=== PATIENT | female | born 1945 | race Caucasian/White ===

== ENCOUNTER 2021-04-20 16:53 | Inpatient (IN) | payer OTHER ==
--- OUTSIDE RECORDS SUMMARY | 2021-04-20 16:56 | XMS REPORT | Continuity of Care Document ---
:1945 Author Organization [facility] t Address [address] [place] [address] Care Team Providers Name Role Phone Daquan STAPLES, Yo Primary Care Physician Doctor Unassigned, Name Attending Clinician Unavailable Problems This patient has no known problems. Allergies, Adverse Reactions, Alerts This patient has no known allergies or adverse reactions. Social History Social Habit Start Date Stop Date Quantity Comments Source Sex Assigned [birth year] [facility] 00:00:00 00:00:00 Medications This patient has no known medications. Procedures This patient has no known procedures. Plan of Care Planned Activity Planned Date Details Comments Source Future Scheduled 2021-06-23 INFLUENZA VACCINE [place] [facility] 00:00:00 [code = INFLUENZA VACCINE] Future Scheduled 2019-04-28 BREAST CANCER [facility] 00:00:00 SCREENING [code = BREAST CANCER SCREENING] Future Scheduled 1997 COLONOSCOPY SCREENING [facility] 00:00:00 [code = COLONOSCOPY SCREENING] Future Scheduled 1997 SHINGLES VACCINES [place] [facility] 00:00:00 (#1) [code = SHINGLES VACCINES (#1)] Future Scheduled 1959 COVID-19 VACCINE (1) [facility] 00:00:00 [code = COVID-19 VACCINE (1)] Encounters Start End Encounter Admission Attending Care Care Encounter Source Date/Time Date/Time Type Type Clinicians Facility Department ID 2020-02-22 2020-02-22 [facility] [id number] 00:00:00 00:00:00 Only Unassigned, MARYANNE [id number] [place] [facility] [id number] 2020-02-14 2020-02-14 Orders Doctor MARIANELA [id number] 00:00:00 00:00:00 Only Unassigned, [id number] [id number] Results This patient has no known results.
[2021-04-20 17:28] LABS: Absolute Lymphocytes (CBC) 2.1 K/uL (0.7-4.9); Basophils % 0.6 % (0-1.3); Hematocrit 38.6 % (36.0-45.0); Lymphocytes % 16.8 % (15.3-44.8); MPV 9.5 fL (7.6-11.3)
[2021-04-20 17:48] LABS: Urine Blood 1+ (Negative); Urine Glucose Negative (Negative); Urine Protein Negative (Negative)
[2021-04-20 17:50] LABS: Albumin 2.7 g/dL (3.4-5.0); Bilirubin Direct 0.2 mg/dL (0-0.2); Bilirubin Total 0.8 mg/dL (0.2-1.0); Magnesium 2.1 mg/dL (1.8-2.4); Potassium 4.7 mmol/L (3.5-5.1); Protein, Total 7.7 g/dL (6.4-8.2); Protime INR 1.14; Troponin (Emerg Dept Use Only) 0.21 ng/mL (0.0-0.045)
[2021-04-20] MEDS ORDERED: METOPROLOL TAR 50 MG TAB ONE (17:57)
[2021-04-20] MEDS ORDERED: METOPROLOL TARTRATE 5 MG/5 ML INJ IV ONE (17:57)
[2021-04-20] MEDS ORDERED: NA CHLORIDE 0.9% 1,000 ML ONE (17:57)
[2021-04-20] MEDS ORDERED: ENOXAPARIN 80 MG/0.8 ML SQ ONE (17:57)
[2021-04-20] MEDS ORDERED: FAMOTIDINE 20 MG/2 ML VIAL IV ONE (17:57)
[2021-04-20 18:52] LABS: Thyroid Stimulating Hormone 0.864 uIU/mL (0.360-3.740)
--- NOTE | 2021-04-20 19:22 | ER ---
Nurse's Notes [facility] Name: Yuval Byrne Age: 75 yrs Sex: Female : 1945 Arrival Date: 04/20/2021 Time: 17:00 Bed 17 Private MD: Diagnosis: Chest pain, unspecified;Angina pectoris;Dementia in other diseases classified elsewhere;Chronic obstructive pulmonary disease, unspecified;Non-ST elevation (NSTEMI) myocardial infarction;Atrial fibrillation and flutter-with RVR;Tobacco abuse counseling;Tobacco use Presentation: 04/20 16:52 Chief complaint: EMS states: 75 yr. old female c/o chest pain and weakness that started rb3 today. Altered mental status. New onset of A-Fib. EMS administered aspirin 324 mg PO x 1, NS 250 ml via 20 g L AC. BS 108, BP 140's, 100% RA. Coronavirus screen: At this time, the client does not indicate any symptoms associated with coronavirus-19. Ebola Screen: Patient denies travel to an Ebola-affected area in the 21 days before illness onset. 16:52 Method Of Arrival: EMS: [facility] rb3 16:52 Initial Sepsis Screen: Does the patient meet any 2 criteria?. rb3 16:52 Initial Sepsis Screen: Does the patient have a suspected source of infection? No. rb3 Patient's initial sepsis screen is negative. Risk Assessment: Do you want to hurt yourself or someone else? Patient reports no desire to harm self or others. Onset of symptoms was April 20, 2021. 16:52 Acuity: AMERICO 3 rb3 Triage Assessment: 16:52 General: Appears in no apparent distress. comfortable, Behavior is calm, cooperative. rb3 Pain: Complains of pain in epigastric area and left upper quadrant Pain currently is 10 out of 10 on a pain scale. Pain began today. Neuro: Level of Consciousness is awake, obeys commands, confused, Oriented to person. Neuro: Reports weakness in generalized. Cardiovascular: Patient's skin is warm and dry. Respiratory: Airway is patent Respiratory effort is even, unlabored, Respiratory pattern is regular, symmetrical. GI: No signs and/or symptoms were reported involving the gastrointestinal system. : No signs and/or symptoms were reported regarding the genitourinary system. Historical: - Allergies: 16:52 hydrocodone; rb3 - Home Meds: 16:52 Namenda XR 28 mg oral CSpX 1 cap once daily [Active]; Tylenol 325 mg 2 tabs every 6 rb3 hours [Active]; Depakote 125 mg Oral TbEC 3 tabs 2 times per day [Active]; donepezil 10 mg oral tab 2 tab once daily [Active]; gabapentin 400 mg oral cap 1 cap 3 times per day [Active]; loratadine 10 mg oral tab 1 tab once daily [Active]; - PMHx: 16:52 Alzheimers; cognitive deficit; generalized weakness; Dementia w/behavioral disturbance; rb3 Idiopathic Peripheral Autonomic Neuropathy; Polymyalgia Rheumatica; Systemic Involvement of Connective Tissue; - Immunization history:: Adult Immunizations unknown. - Social history:: Smoking status: Patient reports the use of cigarette tobacco products, unknown amount. - Family history:: not pertinent. Screenin:52 Abuse screen: Denies threats or abuse. Nutritional screening: No deficits noted. rb3 Tuberculosis screening: No symptoms or risk factors identified. Fall Risk No fall in past 12 months (0 pts). Secondary diagnosis (15 points) Alzheimer's, dementia, IV access (20 points). Ambulatory Aid- None/Bed Rest/Nurse Assist (0 pts). Gait- Normal/Bed Rest/Wheelchair (0 pts) Mental Status- Overestimates/Forgets Limitations (15 pts.). Total Wade Fall Scale indicates High Risk Score (45 or more points). Fall prevention measures have been instituted. Side Rails Up X 2 Placed Close to Nursing Station 1:1 Attendant Assigned Frequent Obs/Assessments Occuring As available patient and family educated on Fall Prevention Program and Strategies. Assessment: 16:52 General: See triage assessment. rb3 17:50 Reassessment: Patient appears in no apparent distress at this time. No changes from rb3 previously documented assessment. 18:19 Reassessment: Held Lopressor due to low blood pressure. rb3 18:40 Reassessment: Patient appears in no apparent distress at this time. Patient and/or rb3 family updated on plan of care and expected duration. Pain level reassessed. Patient is alert, oriented x 3, equal unlabored respirations, skin warm/dry/pink. 20:00 General: Appears in no apparent distress. comfortable, Behavior is calm, cooperative. rr5 Pain: Unable to use pain scale. Patient appears confused. Neuro: Level of Consciousness is awake, alert, Oriented to none. Cardiovascular: Capillary refill < 3 seconds Patient's skin is warm and dry. Rhythm is irregular. Respiratory: Airway is patent Respiratory effort is even, unlabored, Respiratory pattern is regular, symmetrical. GI: Abdomen is round non-distended. : No signs and/or symptoms were reported regarding the genitourinary system. EENT: No signs and/or symptoms were reported regarding the EENT system. Derm: Skin temperature is warm. Musculoskeletal: Capillary refill < 3 seconds. 21:20 Reassessment: Patient appears in no apparent distress at this time. Patient is alert, rr5 oriented x 3, equal unlabored respirations, skin warm/dry/pink. able to move to bedside commode with assistance, voided freely. Vital Signs: 16:52 BP 130 / 64; Pulse 96; Resp 17; Temp 99.0; Pulse Ox 98% on R/A; Weight 83.1 kg; Height rb3 5 ft. 7 in. (170.18 cm); Pain 10/10; 17:45 BP 111 / 61; Pulse 104; Resp 20; Pulse Ox 96% on R/A; rb3 18:19 BP 98 / 57; Pulse 74; Resp 17; Pulse Ox 96% on R/A; rb3 18:40 BP 98 / 85; Pulse 72; Resp 18; Pulse Ox 97% ; rb3 20:00 BP 105 / 62; Pulse 85; Resp 18; Pulse Ox 95% ; rr5 21:02 BP 117 / 58; Pulse 95; Resp 19; Pulse Ox 94% ; rr5 16:52 Body Mass Index 28.69 (83.10 kg, 170.18 cm) rb3 16:52 Called [facility] for height and weight. rb3 18:19 Held the Lopressor due to BP rb3 ED Course: 16:52 Arm band placed on right wrist. rb3 17:00 Patient arrived in ED. rb3 17:01 Maintain EMS IV. Dressing intact. Good blood return noted. Site clean \T\ dry. mh5 17:01 Patient has correct armband on for positive identification. Bed in low position. Call [facility] light in reach. Side rails up X2. Warm blanket given. monitor technician on. Pulse ox on. NIBP on. 17:04 Jose Lemus MD is Attending Physician. ubaldo 17:09 Triage completed. rb3 17:21 Troponin (emerg Dept Use Only) Sent. mh5 17:21 PT-INR Sent. mh5 17:21 NT PRO-BNP Sent. mh5 17:22 Magnesium Sent. mh5 17:22 LFT's Sent. mh5 17:22 CBC with Diff Sent. mh5 17:22 Basic Metabolic Panel Sent. mh5 17:32 Eli Ramirez, RN is Primary Nurse. rb3 17:34 XRAY Chest (1 view) In Process Unspecified. EDMS 17:59 Urine Culture Sent. mh5 17:59 Urine collected: straight cath specimen, clear. mh5 18:19 Basic Metabolic Panel Sent. mh5 18:19 CBC with Diff Sent. mh5 18:19 LFT's Sent. mh5 19:17 Siddharth Butler MD is Hospitalizing Provider. ubaldo 21:08 No provider procedures requiring assistance completed. Patient admitted, IV remains in rr5 place. intact, No redness/swelling at site. Administered Medications: 17:45 Drug: NS 0.9% 1000 ml Route: IV; Rate: 1 bolus; Site: left antecubital; rb3 19:20 Follow up: Response: No adverse reaction; IV Status: Completed infusion; IV Intake: rr5 1000ml 17:45 Drug: Lopressor (metoprolol TARTRATE) 50 mg Route: PO; rb3 18:22 Follow up: Response: No adverse reaction; Blood pressure is lowered rb3 17:45 Drug: Lopressor (metoprolol) 2.5 mg Route: IVP; Site: left antecubital; rb3 18:19 Follow up: Response: No adverse reaction; Blood pressure is lowered rb3 17:45 Drug: Pepcid (famotidine) 20 mg Route: IVP; Site: left antecubital; rb3 18:00 Follow up: Response: No adverse reaction rb3 17:45 Drug: Lovenox (enoxaparin) 1 mg/kg Route: Sub-Q; Site: abdomen; rb3 18:00 Follow up: Response: No adverse reaction rb3 19:25 Drug: Xopenex (levalbuterol) 2.5 mg Route: Inhalation; rr5 20:25 Follow up: Response: No adverse reaction rr5 19:25 Drug: AtroVENT (ipratropium) Aerosol 0.5 mg Route: Inhalation; rr5 20:25 Follow up: Response: No adverse reaction rr5 20:00 Drug: SOLU-Medrol (methylPrednisoLONE) 125 mg Route: IVP; Site: left antecubital; rr5 21:00 Follow up: Response: No adverse reaction rr5 20:00 Drug: Aspirin 81 mg Route: PO; rr5 21:00 Follow up: Response: No adverse reaction rr5 20:00 Drug: PlaVIX (clopidogrel) 150 mg Route: PO; rr5 21:00 Follow up: Response: No adverse reaction rr5 20:59 Drug: Nicoderm CQ 21 mg/24 hr 21 mg {Note: right upper arm\E\.} Route: Transdermal; Site: rr5 affected area; 21:34 Follow up: Response: No adverse reaction rr5 21:36 Not Given (Hemodynamic Parameters): Lopressor (metoprolol) 2.5 mg IVP once; Hold for rr5 SBP <100 or HR <60. 22:01 Not Given (Other Intervention Used): Lopressor (metoprolol) 2.5 mg IVP once; Hold for rr5 SBP <100 or HR <60. Intake: 19:20 IV: 1000ml; Total: 1000ml. rr5 Outcome: 19:22 Decision to Hospitalize by Provider. ubaldo 21:33 Admitted to Med/surg accompanied by jesus manuel, via wheelchair, room 205, with chart, Report rr5 called to kallie 21:33 Condition: stable 21:33 Instructed on the need for admit. 22:02 Patient left the ED. rr5 Signatures: Dispatcher [employer] EDTX Jose Lemus MD MD cha Martinez, Maria 5 Siddharth Ivory, RN RN rr5 Eli Ramirez, CONSTANTINE RN rb3 Corrections: (The following items were deleted from the chart) 17:34 16:52 BP 130 / 64; Pulse 96bpm; Resp 17bpm; Pulse Ox 98% RA; Temp 99.0F; Pain 10/10; rb3rb3 18:21 18:19 BP 98 / 57; Pulse 74bpm; Resp 17bpm; Pulse Ox 96% RA; rb3 rb3 21:08 21:02 BP 117 / 58; Pulse 95bpm; Resp 19bpm; Pulse Ox 98%; rr5 rr5
--- NOTE | 2021-04-20 19:22 | EDPHYS ---
Physician Documentation [facility] Name: Yuval Byrne Age: 75 yrs Sex: Female : 1945 Arrival Date: 04/20/2021 Time: 17:00 Bed 17 Private MD: ED Physician Jose Lemus HPI: 04/20 19:11 This 75 yrs old Unknown Female presents to ER via EMS with complaints of Chest Pain. ubaldo 19:11 The patient or guardian reports chest pain that is located primarily in the substernal ubaldo area, anterior chest wall, bilaterally. Onset: 1 day(s) ago. The pain does not radiate. Associated signs and symptoms: Pertinent positives: lightheadedness, nausea, shortness of breath. The chest pain is described as a pressure. Duration: The patient or guardian reports multiple episodes, that are intermittent. Modifying factors: The symptoms are alleviated by nothing. the symptoms are aggravated by nothing. Severity of pain: At its worst the pain was mild in the emergency department the pain is unchanged. It is unknown whether or not the patient has had similar symptoms in the past. Historical: - Allergies: 16:52 hydrocodone; rb3 - Home Meds: 16:52 Namenda XR 28 mg oral CSpX 1 cap once daily [Active]; Tylenol 325 mg 2 tabs every 6 rb3 hours [Active]; Depakote 125 mg Oral TbEC 3 tabs 2 times per day [Active]; donepezil 10 mg oral tab 2 tab once daily [Active]; gabapentin 400 mg oral cap 1 cap 3 times per day [Active]; loratadine 10 mg oral tab 1 tab once daily [Active]; - PMHx: 16:52 Alzheimers; cognitive deficit; generalized weakness; Dementia w/behavioral disturbance; rb3 Idiopathic Peripheral Autonomic Neuropathy; Polymyalgia Rheumatica; Systemic Involvement of Connective Tissue; - Immunization history:: Adult Immunizations unknown. - Social history:: Smoking status: Patient reports the use of cigarette tobacco products, unknown amount. - Family history:: not pertinent. ROS: 19:11 Constitutional: Negative for fever, chills, and weight loss, Eyes: Negative for injury, ubaldo pain, redness, and discharge, ENT: Negative for injury, pain, and discharge, Neck: Negative for injury, pain, and swelling, Abdomen/GI: Negative for abdominal pain, nausea, vomiting, diarrhea, and constipation, Back: Negative for injury and pain, : Negative for injury, bleeding, discharge, and swelling, MS/Extremity: Negative for injury and deformity, Skin: Negative for injury, rash, and discoloration, Neuro: Negative for headache, weakness, numbness, tingling, and seizure, Psych: Negative for depression, anxiety, suicide ideation, homicidal ideation, and hallucinations, Allergy/Immunology: Negative for hives, rash, and allergies, Endocrine: Negative for neck swelling, polydipsia, polyuria, polyphagia, and marked weight changes, Hematologic/Lymphatic: Negative for swollen nodes, abnormal bleeding, and unusual bruising. 19:11 Cardiovascular: Positive for chest pain, palpitations. 19:11 Respiratory: Positive for cough, shortness of breath, wheezing, expiratory. Exam: 19:11 Constitutional: This is a well developed, well nourished patient who is awake, alert, ubaldo and in no acute distress. Head/Face: Normocephalic, atraumatic. Eyes: Pupils equal round and reactive to light, extra-ocular motions intact. Lids and lashes normal. Conjunctiva and sclera are non-icteric and not injected. Cornea within normal limits. Periorbital areas with no swelling, redness, or edema. ENT: Nares patent. No nasal discharge, no septal abnormalities noted. Tympanic membranes are normal and external auditory canals are clear. Oropharynx with no redness, swelling, or masses, exudates, or evidence of obstruction, uvula midline. Mucous membranes moist. Neck: Trachea midline, no thyromegaly or masses palpated, and no cervical lymphadenopathy. Supple, full range of motion without nuchal rigidity, or vertebral point tenderness. No Meningismus. Chest/axilla: Normal chest wall appearance and motion. Nontender with no deformity. No lesions are appreciated. Abdomen/GI: Soft, non-tender, with normal bowel sounds. No distension or tympany. No guarding or rebound. No evidence of tenderness throughout. Back: No spinal tenderness. No costovertebral tenderness. Full range of motion. Female : Normal external genitalia. Skin: Warm, dry with normal turgor. Normal color with no rashes, no lesions, and no evidence of cellulitis. MS/ Extremity: Pulses equal, no cyanosis. Neurovascular intact. Full, normal range of motion. Neuro: Awake and alert, GCS 15, oriented to person, place, time, and situation. Cranial nerves II-XII grossly intact. Motor strength 5/5 in all extremities. Sensory grossly intact. Cerebellar exam normal. Normal gait. Psych: Awake, alert, with orientation to person, place and time. Behavior, mood, and affect are within normal limits. 19:11 Cardiovascular: Rate: tachycardic, actual rate is 130 bpm, Rhythm: irregularly irregular, Heart sounds: normal, Edema: is not appreciated, JVD: is not appreciated. 19:11 ECG was reviewed by the Attending Physician. Vital Signs: 16:52 BP 130 / 64; Pulse 96; Resp 17; Temp 99.0; Pulse Ox 98% on R/A; Weight 83.1 kg; Height rb3 5 ft. 7 in. (170.18 cm); Pain 10/10; 17:45 BP 111 / 61; Pulse 104; Resp 20; Pulse Ox 96% on R/A; rb3 18:19 BP 98 / 57; Pulse 74; Resp 17; Pulse Ox 96% on R/A; rb3 18:40 BP 98 / 85; Pulse 72; Resp 18; Pulse Ox 97% ; rb3 20:00 BP 105 / 62; Pulse 85; Resp 18; Pulse Ox 95% ; rr5 21:02 BP 117 / 58; Pulse 95; Resp 19; Pulse Ox 94% ; rr5 16:52 Body Mass Index 28.69 (83.10 kg, 170.18 cm) rb3 16:52 Called [place] for height and weight. rb3 18:19 Held the Lopressor due to BP rb3 MDM: 17:04 Patient medically screened. [facility] 04/20 17:07 Order name: Basic Metabolic Panel [facility] 04/20 17:07 Order name: CBC with Diff; Complete Time: 18:08 [facility] 04/20 17:07 Order name: LFT's [facility] 04/20 17:07 Order name: Magnesium [facility] 04/20 17:07 Order name: NT PRO-BNP [facility] 04/20 17:07 Order name: PT-INR; Complete Time: 18:08 [facility] 04/20 17:07 Order name: Troponin (emerg Dept Use Only) [facility] 04/20 17:11 Order name: Basic Metabolic Panel [facility] 04/20 17:11 Order name: CBC with Diff [facility] 04/20 17:11 Order name: LFT's [facility] 04/20 17:07 Order name: XRAY Chest (1 view) [facility] 04/20 17:11 Order name: Urine Culture [facility] 04/20 17:48 Order name: Urine Dipstick-Ancillary [facility] 04/20 18:34 Order name: Thyroid Stimulating Hormone [facility] 04/20 18:35 Order name: Lipase [facility] 04/20 19:08 Order name: Depakote [facility] 04/20 19:08 Order name: Valproic Acid (Depakene) Level [facility] 04/20 19:23 Order name: SARS-COV-2 RT PCR [facility] 04/20 20:37 Order name: Valproic Acid (Depakene) [facility] 04/20 17:07 Order name: EKG; Complete Time: 17:07 [facility] 04/20 17:07 Order name: Cardiac monitoring; Complete Time: 17:19 [facility] 04/20 17:07 Order name: EKG - Nurse/Tech; Complete Time: 17:19 [facility] 04/20 17:07 Order name: IV Saline Lock; Complete Time: 17:08 [facility] 04/20 17:07 Order name: Labs collected and sent; Complete Time: 17:18 [facility] 04/20 17:07 Order name: O2 Per Protocol; Complete Time: 17:08 [facility] 04/20 17:07 Order name: O2 Sat Monitoring; Complete Time: 17:18 [facility] 04/20 17:11 Order name: EKG; Complete Time: 17:12 [facility] 04/20 17:11 Order name: Cardiac monitoring; Complete Time: 17:19 [facility] 04/20 17:11 Order name: EKG - Nurse/Tech; Complete Time: 17:19 [facility] 04/20 17:11 Order name: IV Saline Lock; Complete Time: 17:19 [facility] 04/20 17:11 Order name: Labs collected and sent; Complete Time: 17:19 [facility] 04/20 17:11 Order name: O2 Per Protocol; Complete Time: 17:19 [facility] 04/20 17:11 Order name: O2 Sat Monitoring; Complete Time: 17:19 [facility] 04/20 17:11 Order name: Urine Dipstick-Ancillary (obtain specimen); Complete Time: 17:59 [facility] EC:11 Rate is 102 beats/min. Rhythm is irregularly irregular. QRS Christmas is Normal. VT interval ubaldo is normal. QRS interval is normal. QT interval is normal. No Q waves. T waves are Normal. No ST changes noted. Clinical impression: Sinus tachycardia. Interpreted by me. Reviewed by me. Administered Medications: 17:45 Drug: NS 0.9% 1000 ml Route: IV; Rate: 1 bolus; Site: left antecubital; rb3 19:20 Follow up: Response: No adverse reaction; IV Status: Completed infusion; IV Intake: rr5 1000ml 17:45 Drug: Lopressor (metoprolol TARTRATE) 50 mg Route: PO; rb3 18:22 Follow up: Response: No adverse reaction; Blood pressure is lowered rb3 17:45 Drug: Lopressor (metoprolol) 2.5 mg Route: IVP; Site: left antecubital; rb3 18:19 Follow up: Response: No adverse reaction; Blood pressure is lowered rb3 17:45 Drug: Pepcid (famotidine) 20 mg Route: IVP; Site: left antecubital; rb3 18:00 Follow up: Response: No adverse reaction rb3 17:45 Drug: Lovenox (enoxaparin) 1 mg/kg Route: Sub-Q; Site: abdomen; rb3 18:00 Follow up: Response: No adverse reaction rb3 19:25 Drug: Xopenex (levalbuterol) 2.5 mg Route: Inhalation; rr5 20:25 Follow up: Response: No adverse reaction rr5 19:25 Drug: AtroVENT (ipratropium) Aerosol 0.5 mg Route: Inhalation; rr5 20:25 Follow up: Response: No adverse reaction rr5 20:00 Drug: SOLU-Medrol (methylPrednisoLONE) 125 mg Route: IVP; Site: left antecubital; rr5 21:00 Follow up: Response: No adverse reaction rr5 20:00 Drug: Aspirin 81 mg Route: PO; rr5 21:00 Follow up: Response: No adverse reaction rr5 20:00 Drug: PlaVIX (clopidogrel) 150 mg Route: PO; rr5 21:00 Follow up: Response: No adverse reaction rr5 20:59 Drug: Nicoderm CQ 21 mg/24 hr 21 mg {Note: right upper arm\E\.} Route: Transdermal; Site: rr5 affected area; 21:34 Follow up: Response: No adverse reaction rr5 21:36 Not Given (Hemodynamic Parameters): Lopressor (metoprolol) 2.5 mg IVP once; Hold for rr5 SBP <100 or HR <60. 22:01 Not Given (Other Intervention Used): Lopressor (metoprolol) 2.5 mg IVP once; Hold for rr5 SBP <100 or HR <60. Disposition: 04/20/21 19:22 Hospitalization ordered by Siddharth Butler for Inpatient Admission. Preliminary diagnosis are Chest pain, unspecified, Angina pectoris, Dementia in other diseases classified elsewhere, Chronic obstructive pulmonary disease, unspecified, Non-ST elevation (NSTEMI) myocardial infarction, Atrial fibrillation and flutter - with RVR, Tobacco abuse counseling, Tobacco use. - Bed requested for Telemetry/MedSurg (Inpatient). - Status is Inpatient Admission. rr5 - Condition is Fair. - Problem is new. - Symptoms have improved. Signatures: Dispatcher [employer] EDMS Jose Lemus MD MD cha Attema, Lee, DEPARTMENT OF MATHEMATICS CHAIR-C DEPARTMENT OF MATHEMATICS CHAIR-Cla1 Rosa Ramirez, RN RN cg Siddharth Ivory, RN RN rr5 Eli Ramirez, RN RN rb3 Corrections: (The following items were deleted from the chart) 17:32 17:12 Chest Single View+RAD.RAD.BRZ ordered. EDMS EDMS 18:34 17:12 CORONAVIRUS+MR.LAB.BRZ ordered. EDMS EDMS 18:35 17:12 Basic Metabolic Panel ordered. EDMS EDMS 18:35 17:12 CBC with Automated Diff ordered. EDMS EDMS 18:35 17:12 Liver (Hepatic) Function ordered. EDMS EDMS 18:35 17:12 MAGNESIUM+C.LAB.BRZ ordered. EDMS EDMS 18:35 17:12 PROBNP+C.LAB.BRZ ordered. EDMS EDMS 18:35 17:12 PROTIME (+INR)+COAG.LAB.BRZ ordered. EDMS EDMS 18:35 17:12 TROPONIN (EMERG DEPT USE ONLY)+C.LAB.BRZ ordered. EDMS EDMS 18:35 17:12 LIPASE+C.LAB.BRZ ordered. EDMS EDMS 18:35 17:12 THYROID STIMULAT HORMONE+C.LAB.BRZ ordered. EDMS EDMS 19:25 19:22 Hospitalization Ordered by Siddharth Butler MD for Inpatient Admission. Preliminary ubaldo diagnosis is Chest pain, unspecified; Angina pectoris; Dementia in other diseases classified elsewhere; Chronic obstructive pulmonary disease, unspecified; Non-ST elevation (NSTEMI) myocardial infarction; Atrial fibrillation and flutter - with RVR. Bed requested for Intensive Care Unit. Status is Inpatient Admission. Condition is Fair. Problem is new. Symptoms have improved. [facility] 20:23 19:25 04/20/2021 19:22 Hospitalization Ordered by Siddharth Butler MD for Inpatient cg Admission. Preliminary diagnosis is Chest pain, unspecified; Angina pectoris; Dementia in other diseases classified elsewhere; Chronic obstructive pulmonary disease, unspecified; Non-ST elevation (NSTEMI) myocardial infarction; Atrial fibrillation and flutter - with RVR; Tobacco abuse counseling; Tobacco use. Bed requested for Intensive Care Unit. Status is Inpatient Admission. Condition is Fair. Problem is new. Symptoms have improved. [facility] 22: 20:23 04/20/2021 19:22 Hospitalization Ordered by Siddharth Butler MD for Inpatient rr5 Admission. Preliminary diagnosis is Chest pain, unspecified; Angina pectoris; Dementia in other diseases classified elsewhere; Chronic obstructive pulmonary disease, unspecified; Non-ST elevation (NSTEMI) myocardial infarction; Atrial fibrillation and flutter - with RVR; Tobacco abuse counseling; Tobacco use. Bed requested for Telemetry/MedSurg (Inpatient). Status is Inpatient Admission. Condition is Fair. Problem is new. Symptoms have improved. cg
--- NOTE | 2021-04-20 19:50 | RAD REPORT ---
EXAM DESCRIPTION: [place] Single View04/20/2021 5:34 pm CLINICAL HISTORY: Chest pain COMPARISON: none FINDINGS: Left base is hazy. Right lung appears clear. Heart is mildly enlarged IMPRESSION: Left base is hazy suspicious for pneumonia. This should followed until it is clear to h elp exclude a post obstructive process/underlying mass
[2021-04-20] MEDS ORDERED: NICOTINE 21 MG/PAT TD ONE (20:00)
[2021-04-20] MEDS ORDERED: METHYLPREDNISOLONE 125 MG INJ ONE (20:00)
[2021-04-20] MEDS ORDERED: CLOPIDOGREL 75 MG TABLET ONE (20:01)
[2021-04-20] MEDS ORDERED: ASPIRIN 81 MG CHEWABLE TABLET ONE (20:01)
[2021-04-20] MEDS ORDERED: IPRATROPIUM BROM 0.5MG/2.5ML ONE (20:01)
[2021-04-20] MEDS ORDERED: LEVALBUTEROL 1.25 MG/3 ML NEB ONE (20:01)
--- NOTE | 2021-04-20 20:35 | P.HP ---
Certification for Inpatient Patient admitted to: Inpatient With expected LOS: >2 Midnights Patient will require the following post-hospital care: None Practitioner: I am a practitioner with admitting privileges, knowledge of patient current condition, hospital course, and medical plan of care. Services: Services provided to patient in accordance with Admission requirements found in Title 42 Section 412.3 of the Code of Federal Regulations Patient History Date of Service: 04/20/21 Primary Care Provider: [facility] doctor Reason for admission: NSTEMI, New onset AF History of Present Illness: 75-year-old female with history of severe dementia who is a resident of [facility] presents emergency department for chest pain, arrhythmia. Upon arrival to the emergency department patient in atrial fibrillation with rapid ventricular response and having chest pain, labs in the emergency department significant for white blood cell count 12.4 sodium 134 GFR 82 troponin 0.21 BNP 1772. Patient is given multiple rounds of IV Lopressor, full-dose Lovenox in the emergency department, rate is now controlled between 70-90 beats per min, ED provider wishes to admit for further evaluation and management. - Past Medical/Surgical History -: Dementia with behavioral disturbance -: Polymyalgia rheumatica -: Hysterectomy -: Glaucoma Psychosocial/ Personal History: Resident of [facility] for the last 2 years - Family History Father -: Heart disease - Social History Smoking Status: Current every day smoker Counseled patient to stop smoking for: less than 10 minutes Smoking therapy provided: Yes Place of Residence: [facility] Review of Systems is unable to be obtained Physical Examination - Physical Exam General: Alert, In no apparent distress, Oriented x2, Confused HEENT: Atraumatic, PERRLA, Mucous membr. moist/pink Neck: Supple, 2+ carotid pulse no bruit, No LAD Respiratory: Clear to auscultation bilaterally, Normal air movement Cardiovascular: Normal S1 S2, Irregular heart rate/rhythm (AF rate 90) Capillary refill: <2 Seconds Gastrointestinal: Normal bowel sounds, No tenderness, No masses, No rebound, No guarding Musculoskeletal: No erythema, No tenderness Integumentary: No rashes Neurological: Normal speech, Normal strength at 5/5 x4 extr, Normal tone, Normal affect - Studies Laboratory Data (last 24 hrs) 04/20/21 17:11: PT Cancelled, INR Cancelled 04/20/21 17:11: WBC Cancelled, Hgb Cancelled, Hct Cancelled, Plt Count Cancelled 04/20/21 17:11: Sodium Cancelled, Potassium Cancelled, BUN Cancelled, Creatinine Cancelled, Glucose Cancelled, Magnesium Cancelled, Total Bilirubin Cancelled, AST Cancelled, ALT Cancelled, Alkaline Phosphatase Cancelled, Lipase Cancelled 04/20/21 17:10: PT 13.1 H, INR 1.14 04/20/21 17:10: WBC 12.40 H, Hgb 13.5, Hct 38.6, Plt Count 327 04/20/21 17:10: Sodium 134 L, Potassium 4.7, BUN 8, Creatinine 0.70, Glucose 105, Magnesium 2.1, Total Bilirubin 0.8, AST 11 L, ALT 11 L, Alkaline Phosphatase 69, Lipase 86 Assessment and Plan - Plan Assessment NSTEMI, chest pain, new onset atrial fibrillation Dementia with behavioral disturbance Polymyalgia rheumatica Plan NSTEMI, chest pain, new onset atrial fibrillation: Monitor on telemetry, cardiology consulted, continue with metoprolol for rate control, full-dose Lovenox at this time for anticoagulations secondary to new onset AFib and NSTEMI. Troponin elevated likely related to demand ischemia from rapid AFib. Appreciate further input from cardiology, full-dose Lovenox for DVT prophylaxis. Dementia with behavioral disturbance: Continue half-way medications, adjust as necessary. Polymyalgia rheumatica: Continue home medications. Discharge Plan: Home Plan to discharge in: 48 Hours - Advance Directives Does patient have a Living Will: No Does patient have a Durable POA for Healthcare: No - Code Status/Comfort Care Code Status Assessed: Yes (FC) Critical Care: No Time Spent Managing Pts Care (In Minutes): 55
[2021-04-20] MEDS ORDERED: ONDANSETRON 4 MG/2 ML VIAL IV PRN (22:13)
[2021-04-20 22:25] VITALS: BMI 29.5
[2021-04-21] MEDS: ATORVASTATIN 40 MG TAB PO SCH ×2 (00:31→20:55)
[2021-04-21 05:23] LABS: Basophils % 0.3 % (0-1.3); Hematocrit 36.4 % (36.0-45.0); RBC Red Blood Cell Count 4.16 M/uL (3.86-4.86)
[2021-04-21 05:42] LABS: Albumin 2.4 g/dL (3.4-5.0); Bilirubin Total 0.7 mg/dL (0.2-1.0); Magnesium 2.3 mg/dL (1.8-2.4); Potassium 4.1 mmol/L (3.5-5.1); Protein, Total 7.2 g/dL (6.4-8.2); Troponin I 0.06 ng/mL (0.0-0.045)
[2021-04-21] MEDS ORDERED: METOPROLOL TAR 25 MG TAB PO SCH (06:00)
[2021-04-21] MEDS: NICOTINE 14 MG/PAT TD SCH (08:36)
[2021-04-21] MEDS: ASPIRIN EC 81 MG TAB PO SCH (08:37)
[2021-04-21] MEDS: ENOXAPARIN 100 MG/ML SYR SQ SCH ×2 (08:37→20:54)
[2021-04-21 09:30] LABS: Urine Appearance CLEAR (Clear); Urine Bilirubin NEGATIVE (Negative); Urine Blood NEGATIVE (Negative); Urine Color DK YELLOW (Yellow); Urine Glucose NEGATIVE (Negative); Urine Protein NEGATIVE (Negative); Urine Specific Gravity 1.015 (1.005-1.030)
[2021-04-21 09:31] LABS: Urine Microscopic Reflex NO UMIC
--- NOTE | 2021-04-21 10:47 | EKG ---
Test Date: 2021-04-20 Test Time: 17:01:42 Ceramic Plater: VITALIY MEASUREMENT RESULTS: Intervals: Rate: 102 MS: QRSD: 70 QT: 330 QTc: 430 Carmi: P: MS: QRS: -35 T: 24 INTERPRETIVE STATEMENTS: Atrial fibrillation with rapid ventricular response with premature ventricular or aberrantly conducted complexes Left axis deviation Abnormal ECG No previous ECG available for comparison Electronically Signed On 04-21-21 10:46:43 CDT by Rico Chilel
--- NOTE | 2021-04-21 10:47 | EKG ---
Test Date: 2021-04-20 Test Time: 22:46:32 Floor Plan Adjuster: ARELY MEASUREMENT RESULTS: Intervals: Rate: 76 IA: QRSD: 70 QT: 378 QTc: 425 [place]: P: IA: QRS: -32 T: 16 INTERPRETIVE STATEMENTS: Atrial fibrillation Left axis deviation ST elevation, consider early repolarization, pericarditis, or injury Abnormal ECG No previous ECG available for comparison Electronically Signed On 04-21-21 10:46:32 CDT by Rico Chilel
--- NOTE | 2021-04-21 12:11 | CON ---
Date of Consultation: 04/21/2021 Reason For Consultation: Admitted to Dr. Butler with a history of fall, atrial fibrillation, volume o verload. History Of Present Illness: Ms. Byrne is 75-year-old, lives in a long-term. She is a do not re suscitate. 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 No nausea, vomiting, diaphoresis, PND, or thopnea, pedal edema, or palpitation reported. Denied any fever or chills. Allergies: HYDROCODONE. Review of Systems: Negative. Social History: Positive for being a DNR. Medications: Namenda, Tylenol, Depakote, donepezil, gabapentin, loratadine. Physical Examination: Vital Signs: Stable. When I saw her, she was not in atrial fibrillation anymore. She was in sinus bradycardia with PACs. Her blood pressure was 97/53. HEENT: Negative. Neck: Supple with no bruit. Chest: Clear. Cardiac: Regular rhythm and rate without any murmurs, gallops, or rubs. Abdomen: Benign. Extremities: No clubbing, cyanosis, or edema. Neurological: She would definitely focal. She had a flat affect. She was not alert and oriented to time and place. Her pulses were present distally bilaterally. Diagnostic Data: EKG initially showed atrial fibrillation, now she is in sinus bradycardia with PACs . Her glucose was 152. Her troponin was 0.06. Chest x-ray is showing possible pneumonia. Impression And Plan: 1.Atrial fibrillation, new onset, now rate controlled, although bradycardic and slightly hypotensive . I would definitely hold the metoprolol. Continue Lovenox. 2.Do not resuscitate status. 3.Severe dementia. I do not think Ms. Byrne is a good candidate for anticoagulation because of her risk of fall. I th ink we need to watch her atrial fibrillation, continue aspirin for sure as an anticoagulant, consider [place] down the [address] as the family is interested, get an echocardiogram sometimes later if she sta ys in the hospital. Her troponin elevation is definitely secondary to the atrial fibrillation and th ere is certainly no need for invasive cardiac workup at this point. I will discuss the case further with Dr. Butler. CHARU/BANDAR Voice ID: [id number] Report ID: [id number]
--- NOTE | 2021-04-21 15:32 | P.PN ---
Subjective Date of Service: 04/21/21 Primary Care Provider: [facility] doctor Chief Complaint: NSTEMI, New onset AF Subjective: No new changes (pleasantly demented, AAO to self only. denies any pain / numbness/tingling, no n/v/d) Review of Systems 10-point ROS is otherwise unremarkable Physical Examination - Vital Signs Temperature: 97.8 F Blood Pressure: 96/53 Pulse: 76 Respirations: 17 Pulse Ox (%): 94 - Studies Laboratory Data (last 24 hrs) 04/20/21 17:11: PT Cancelled, INR Cancelled 04/20/21 17:11: WBC Cancelled, Hgb Cancelled, Hct Cancelled, Plt Count Cancelled 04/20/21 17:11: Sodium Cancelled, Potassium Cancelled, BUN Cancelled, Creatinine Cancelled, Glucose Cancelled, Magnesium Cancelled, Total Bilirubin Cancelled, AST Cancelled, ALT Cancelled, Alkaline Phosphatase Cancelled, Lipase Cancelled 04/20/21 17:10: PT 13.1 H, INR 1.14 04/20/21 17:10: WBC 12.40 H, Hgb 13.5, Hct 38.6, Plt Count 327 04/20/21 17:10: Sodium 134 L, Potassium 4.7, BUN 8, Creatinine 0.70, Glucose 105, Magnesium 2.1, Total Bilirubin 0.8, AST 11 L, ALT 11 L, Alkaline Phosphatase 69, Lipase 86 Assessment & Plan Physician Review Additional Text: Physical Exam General: Alert, In no apparent distress, Oriented x1, pleasant HEENT: Atraumatic, PERRL, EOMI Respiratory: Clear to auscultation bilaterally, Normal air movement Cardiovascular: Normal S1 S2, Irregular heart rate/rhythm Gastrointestinal: soft, nontender, nondistended Musculoskeletal: No erythema, No tenderness/joint swelling Integumentary: No rashes Problem list NSTEMI, chest pain new onset atrial fibrillation Dementia with behavioral disturbance Polymyalgia rheumatica -metoprolol given in ED, pt HR now bradycardic at times with hypotension, hold lopressor for now, ?tachy-shakira syndrome -anticoagulated for now on lovenox -trop elevated, likely demand ischemia 2/2 Afib with RVR -Cardiology consulted - recommends obtaining echo -continue home meds as indicated -pt has severe dementia, family want aggressive therapies -CT chest to further eval opacity / ?mass -PT consulted Code: DNR Dispo: needs echo, monitor on telemetry, hr/BP very labile Time Spent Managing Pts Care (In Minutes): 35
--- NOTE | 2021-04-21 15:39 | RAD REPORT ---
EXAM DESCRIPTION: CT - Thorax W/ Con - 04/21/2021 2:54 pm CLINICAL HISTORY: Atrial fibrillation, chest pain, abnormal chest film COMPARISON: Chest Single View dated 04/20/2021 TECHNIQUE: Dynamically enhanced 5 mm thick images of the chest were obtained during administration o f 100 mL non-ionic IV contrast. All CT scans are performed using dose optimization technique as appropriate and may include automated exposure control or mA/KV adjustment according to patient size. FINDINGS: Minimal left pleural effusion is present with partial atelectasis in the posterior gutter. Infectious or aspiration pneumonia is not suspected. No mass lesion identified. Right lung field is clear. No right-sided pleural effusion. There is no pneumothorax. No chest wall mass or abnormal axil alfreda lymphadenopathy. No abnormal mediastinal or hilar mass or lymphadenopathy seen. Ascending aorta is 3.5 cm in diameter with no suspicious calcifications. No acute aortic finding. Pulmonary arteries opacify normally. Trac e amount of pericardial thickening and/ or effusion present not regarded as clinically significant. H eart size is upper normal. IMPRESSION: Minimal left base pleural effusion with left base atelectasis. No infectious or aspiration pneumonia seen. No mass lesion identified.
[2021-04-21] MEDS: DONEPEZIL HCL 5 MG TAB PO SCH (20:55)
[2021-04-21] MEDS: GABAPENTIN 400 MG CAP PO SCH (20:55)
[2021-04-21] MEDS: DIVALPROEX NA 125 MG CAP PO SCH (20:55)
[2021-04-21] MEDS ORDERED: HOME MED 1 EA UNK (Donepezil Hcl [Donepezil Hcl] 10 MG Tablet) PO SCH (21:00)
[2021-04-22 05:48] LABS: Absolute Lymphocytes (CBC) 3.8 K/uL (0.7-4.9); Basophils % 0.5 % (0-1.3); Hematocrit 38.1 % (36.0-45.0); Lymphocytes % 32.1 % (15.3-44.8); MPV 9.4 fL (7.6-11.3); RBC Red Blood Cell Count 4.36 M/uL (3.86-4.86)
[2021-04-22 05:52] LABS: ALT/SGPT 11 U/L (12-78); AST/SGOT 12 U/L (15-37); Albumin 2.5 g/dL (3.4-5.0); Alkaline Phosphatase 58 U/L (45-117); BUN Blood Urea Nitrogen 11 mg/dL (7-18); Bicarbonate 30 mmol/L (21-32); Bilirubin Total 0.7 mg/dL (0.2-1.0); Glucose Level 93 mg/dL (74-106); Magnesium 2.3 mg/dL (1.8-2.4); Potassium 3.7 mmol/L (3.5-5.1); Protein, Total 7.4 g/dL (6.4-8.2); Sodium Level 141 mmol/L (136-145)
[2021-04-22] MEDS: GABAPENTIN 400 MG CAP PO SCH ×3 (08:25→20:03)
[2021-04-22] MEDS: NICOTINE 14 MG/PAT TD SCH (08:25)
[2021-04-22] MEDS: DIVALPROEX NA 125 MG CAP PO SCH ×2 (08:25→20:03)
[2021-04-22] MEDS: ASPIRIN EC 81 MG TAB PO SCH (08:25)
[2021-04-22] MEDS: ENOXAPARIN 100 MG/ML SYR SQ SCH ×2 (08:27→20:03)
[2021-04-22] MEDS: Memantine Hcl [Namenda Xr] 28 MG Cap.Spr.24 PO SCH (08:28)
--- NOTE | 2021-04-22 10:49 | PN ---
Date of Progress Note: 04/22/2021 Ms. Byrne had came in with atrial fibrillation with slow ventricular response. She is back in sinu s rhythm today. She is not having any symptoms. She has significant dementia and is very hard to ob tain a history from her. Yesterday, I did discuss her case with her daughter. If her atrial fibrill ation becomes an issue, we have to discuss possibility of her pacemaker versus Watchman. For now, I think she should be on aspirin and there is an echocardiogram pending for the morning of 04/23/2021. There was a questionable mass on a chest x-ray, but the CT did not show any significant masses. We will continue to follow her. No change in medical therapy for now. She is intolerant to beta-blockagueda BOX/BANDAR Voice ID: [id number] Report ID: [id number]
--- NOTE | 2021-04-22 12:09 | P.PN ---
Subjective Date of Service: 04/22/21 Primary Care Provider: long term doctor Chief Complaint: NSTEMI, New onset AF Subjective: No new changes (no chest pain/pressure, no SOB, no n/v/d, but also doesn't seem to remember much, +severe dementia. yesterday became bradycardic and hypotensive after beta blockers given in ED, so they were held) Review of Systems 10-point ROS is otherwise unremarkable Physical Examination - Vital Signs Temperature: 98.2 F Blood Pressure: 128/86 Pulse: 90 Respirations: 16 Pulse Ox (%): 95 Assessment & Plan Physician Review Additional Text: Physical Exam General: Alert, In no apparent distress, Oriented x1, pleasant HEENT: Atraumatic, PERRL, EOMI Respiratory: Clear to auscultation bilaterally, Normal air movement Cardiovascular: Normal S1 S2, sinus rhythm, regular rate Gastrointestinal: soft, nontender, nondistended Musculoskeletal: No erythema, No tenderness/joint swelling Integumentary: No rashes Problem list NSTEMI, chest pain new onset atrial fibrillation Dementia with behavioral disturbance Polymyalgia rheumatica -metoprolol given in ED, pt HR became bradycardic at times with hypotension, intolerant to beta kay -Cardiology consulted, recommends obtain echo, may need pacemaker or watchmen's procedure -anticoagulated for now on lovenox -trop elevated, likely demand ischemia 2/2 Afib with RVR; patient is poor historian -continue home meds as indicated -pt has severe dementia, family want aggressive therapies -CT chest done to eval for possible mass - negative -PT consulted Code: DNR Dispo: needs echo, monitor on telemetry, anticipate dc tomorrow Time Spent Managing Pts Care (In Minutes): 35
[2021-04-22] MEDS: DONEPEZIL HCL 5 MG TAB PO SCH (20:03)
[2021-04-22] MEDS: ATORVASTATIN 40 MG TAB PO SCH (20:03)
[2021-04-23 05:36] LABS: Absolute Lymphocytes (CBC) 3.1 K/uL (0.7-4.9); Basophils % 1.2 % (0-1.3); Hematocrit 37.3 % (36.0-45.0); Lymphocytes % 45.6 % (15.3-44.8); MPV 9.3 fL (7.6-11.3); RBC Red Blood Cell Count 4.29 M/uL (3.86-4.86)
[2021-04-23 05:49] LABS: BUN Blood Urea Nitrogen 12 mg/dL (7-18); Bicarbonate 29 mmol/L (21-32); Glucose Level 83 mg/dL (74-106); Potassium 4.1 mmol/L (3.5-5.1); Sodium Level 138 mmol/L (136-145)
[2021-04-23] MEDS: Memantine Hcl [Namenda Xr] 28 MG Cap.Spr.24 PO SCH (09:00)
[2021-04-23] MEDS: ASPIRIN EC 81 MG TAB PO SCH (09:42)
[2021-04-23] MEDS: DIVALPROEX NA 125 MG CAP PO SCH ×2 (09:42→20:32)
[2021-04-23] MEDS: GABAPENTIN 400 MG CAP PO SCH ×3 (09:42→20:33)
[2021-04-23] MEDS: ENOXAPARIN 100 MG/ML SYR SQ SCH ×2 (09:42→20:33)
[2021-04-23] MEDS: NICOTINE 14 MG/PAT TD SCH (09:43)
--- NOTE | 2021-04-23 13:32 | P.PN ---
Subjective Date of Service: 04/23/21 Primary Care Provider: senior living doctor Chief Complaint: NSTEMI, New onset AF Patient denies any complain today. She remain sinus bradycardia. Physical Examination - Vital Signs Temperature: 97.5 F Blood Pressure: 143/69 Pulse: 58 Respirations: 18 Pulse Ox (%): 95 - Physical Exam General: In no apparent distress, Confused HEENT: Mucous membr. moist/pink Neck: Supple, JVD not distended Respiratory: Clear to auscultation bilaterally, Normal air movement Cardiovascular: Regular rate/rhythm, Normal S1 S2, Edema (Trace bilateral lower extremity edema.) Gastrointestinal: Normal bowel sounds, Soft and benign, Non-distended, No tenderness Musculoskeletal: No swelling, No tenderness Integumentary: No rashes, No erythema Neurological: Normal speech, Normal strength at 5/5 x4 extr - Studies Microbiology Data (last 24 hrs): 04/20/21 17:45 Catheterized Urine [place] Count - Final No growth. 04/20/21 17:45 Catheterized Urine - Final No growth. Assessment And Plan Physician Review Additional Text: Physical Exam General: Alert, In no apparent distress, Oriented x1, pleasant HEENT: Atraumatic, PERRL, EOMI Respiratory: Clear to auscultation bilaterally, Normal air movement Cardiovascular: Normal S1 S2, sinus rhythm, regular rate Gastrointestinal: soft, nontender, nondistended Musculoskeletal: No erythema, No tenderness/joint swelling Integumentary: No rashes Problem list NSTEMI, chest pain new onset atrial fibrillation Dementia with behavioral disturbance Polymyalgia rheumatica -metoprolol given in ED, pt HR became bradycardic at times with hypotension, intolerant to beta kay -Cardiology consulted, patient seen by Dr. Chilel. Echocardiogram is pending. Cardiology is considering the option of pacemaker or watchmen's procedure -anticoagulated for now on lovenox -trop elevated, likely demand ischemia 2/2 Afib with RVR; patient is poor historian -continue home meds. -pt has severe dementia. -CT chest done to eval for possible mass - negative for mass -continue PT. Code: DNR DispoL: Monitor on telemetry.
--- NOTE | 2021-04-23 13:52 | ECHO ---
HEIGHT: 5 ft 7 in WEIGHT: 188 lb 4.8 oz DATE OF STUDY: 04/23/[address]: Rico Chilel MD 2-DIMENSIONAL: YES M.MODE: YES DOPPLER: YES COLOR FLOW: YES TDS: NO PORTABLE: NO DEFINITY: NO BUBBLE STUDY: NO DIAGNOSIS: ATRIAL FIBRILLATION CARDIAC HISTORY: CATHERIZATION: SURGERY: PROSTHETIC VALVE: PACEMAKER: MEASUREMENTS (cm) DIASTOLIC (NORMALS) SYSTOLIC (NORMALS) IVSd 0.9 (0.6-1.2) LA Diam 3.0 (1.9-4.0) LVEF 68% LVIDd 4.4 (3.5-5.7) LVIDs 2.7 (2.0-3.5) %FS 37% LVPWd 1.0 (0.6-1.2) Ao Diam 2.3 (2.0-3.7) 2 DIMENSIONAL ASSESSMENT: RIGHT ATRIUM: NORMAL LEFT ATRIUM: NORMAL RIGHT VENTRICLE: NORMAL LEFT VENTRICLE: NORMAL TRICUSPID VALVE: NORMAL MITRAL VALVE: NORMAL PULMONIC VALVE: NORMAL AORTIC VALVE: NORMAL PERICARDIAL EFFUSION: NONE AORTIC ROOT: NORMAL LEFT VENTRICULAR WALL MOTION: NORMAL. DOPPLER/COLOR FLOW: NORMAL. COMMENTS: NORMAL 2D ECHO WITH DOPPLER. NO THROMBUS. NORMAL LEFT ATRIAL SIZE. TECHNOLOGIST: THEA STRATTON
[2021-04-23] MEDS: ATORVASTATIN 40 MG TAB PO SCH (20:33)
[2021-04-23] MEDS: DONEPEZIL HCL 5 MG TAB PO SCH (20:33)
[2021-04-24 01:11] VITALS: O2SAT 94
[2021-04-24 04:43] LABS: Absolute Lymphocytes (CBC) 2.3 K/uL (0.7-4.9); Basophils % 0.7 % (0-1.3); Hematocrit 39.4 % (36.0-45.0); Lymphocytes % 27.3 % (15.3-44.8); MPV 9.1 fL (7.6-11.3); RBC Red Blood Cell Count 4.54 M/uL (3.86-4.86)
[2021-04-24] MEDS: ENOXAPARIN 100 MG/ML SYR SQ SCH (09:00)
[2021-04-24] MEDS: Memantine Hcl [Namenda Xr] 28 MG Cap.Spr.24 PO SCH (09:00)
[2021-04-24] MEDS: DIVALPROEX NA 125 MG CAP PO SCH (09:13)
[2021-04-24] MEDS: GABAPENTIN 400 MG CAP PO SCH (09:13)
[2021-04-24] MEDS: ASPIRIN EC 81 MG TAB PO SCH (09:14)
[2021-04-24] MEDS: NICOTINE 14 MG/PAT TD SCH (09:14)
--- NOTE | 2021-04-24 12:23 | P.DS ---
Admission Date: 04/20/21 Discharge Date: 04/24/21 Primary Care Provider: longterm doctor Disposition: TRANSFER TO INTERMEDIATE Discharge Condition: FAIR Reason for Admission: NSTEMI, New onset AF - Problems (1) Rapid atrial fibrillation Current Visit: Yes Status: Acute (2) Sinus bradycardia Current Visit: Yes Status: Acute (3) NSTEMI (non-ST elevated myocardial infarction) Current Visit: Yes Status: Acute (4) Dementia Current Visit: Yes Status: Acute Brief History of Present Illness: 75-year-old woman with a history of dementia was transferred from the [facility] to the emergency department due to chest pain and arrhythmia. Patient was noted to be in rapid atrial fibrillation in the ED. She was given a dose of IV metoprolol after which she converted to sinus rhythm. Her troponin was mildly elevated. Patient was admitted for further management. Hospital Course: Patient admitted to the medical floor and troponin trended. Troponin trended down and this is likely secondary to demand ischemia from rapid atrial fibrillation. ACS not likely. Patient subsequently developed bradycardia. She was seen by cardiology recommended holding beta-kay. Echocardiogram done was unremarkable. She was also put on full-dose anticoagulation. Cardiology recommend aspirin for atrial fibrillation anticoagulation for now. Fall precaution advised. Vital Signs/Physical Exam: Temp Pulse Resp BP Pulse Ox 97.5 F 65 20 126/56 L 93 04/24/21 08:00 04/24/21 08:00 04/24/21 08:00 04/24/21 08:00 04/24/21 08:00 General: In no apparent distress, Other (Awake) HEENT: PERRLA, Mucous membr. moist/pink Neck: Supple, JVD not distended Respiratory: Clear to auscultation bilaterally, Normal air movement Cardiovascular: No edema, Regular rate/rhythm, Normal S1 S2 Gastrointestinal: Normal bowel sounds, Soft and benign, Non-distended, No tenderness Musculoskeletal: No swelling, No tenderness Integumentary: No rashes, No erythema Neurological: Normal strength at 5/5 x4 extr Laboratory Data at Discharge: WBC 8.60 K/uL (4.3-10.9) D 04/24/21 04:09 Hgb 13.8 g/dL (12.0-15.0) 04/24/21 04:09 Hct 39.4 % (36.0-45.0) 04/24/21 04:09 Plt Count 372 K/uL (152-406) 04/24/21 04:09 PT Cancelled 04/20/21 17:11 INR Cancelled 04/20/21 17:11 Sodium 139 mmol/L (136-145) 04/24/21 04:09 Potassium 4.0 mmol/L (3.5-5.1) 04/24/21 04:09 BUN 9 mg/dL (7-18) 04/24/21 04:09 Creatinine 0.70 mg/dL (0.55-1.3) 04/24/21 04:09 Glucose 91 mg/dL (74-106) 04/24/21 04:09 Magnesium 2.3 mg/dL (1.8-2.4) 04/22/21 05:21 Total Bilirubin 0.7 mg/dL (0.2-1.0) 04/22/21 05:21 AST 12 U/L (15-37) L 04/22/21 05:21 ALT 11 U/L (12-78) L 04/22/21 05:21 Alkaline Phosphatase 58 U/L (45-117) 04/22/21 05:21 Troponin I 0.06 ng/mL (0.0-0.045) H 04/21/21 05:05 Triglycerides 90 mg/dL (<150) 04/21/21 05:05 Cholesterol 143 mg/dL (<200) 04/21/21 05:05 HDL Cholesterol 46 mg/dL (40-60) 04/21/21 05:05 Cholesterol/HDL Ratio 3.11 04/21/21 05:05 Lipase Cancelled 04/20/21 17:11 Home Medications: Acetaminophen [Tylenol] 650 mg PO Q6H PRN 04/21/21 Divalproex Sodium [Depakote Sprinkle] 375 mg PO BID 04/21/21 Donepezil HCl 20 mg PO BEDTIME 04/21/21 Gabapentin [Neurontin*] 400 mg PO TID 04/21/21 Loratadine [Claritin*] 10 mg PO DAILY 04/21/21 Memantine HCl [Namenda Xr] 28 mg PO DAILY 04/21/21 Aspirin [Aspirin EC] 81 mg PO DAILY #30 tablet. 04/24/21 Atorvastatin Calcium [Lipitor] 40 mg PO BEDTIME tab 04/24/21 New Medications: Aspirin [Aspirin EC] 81 mg PO DAILY #30 tablet. Diet: AHA Activity: Fall precautions Followup: Rico Chilel MD [ACTIVE - CAN ADMIT] - 1-2 Weeks OOT,OOT [Primary Care Provider] - 1 Week Time spent managing pt's care (in minutes): 37
[2021-04-24 13:38] VITALS: BP 133/72; TEMP 98.5
--- NOTE | 2021-04-27 15:11 | PN ---
Date of Progress Note: 04/23/2021 Ms. Byrne was being followed for atrial fibrillation, intolerant to beta-kay and digoxin becaus e of bradycardia. She is also not a candidate for anticoagulation because of bleeding. Echocardiogr am which was done, showed a normal ejection fraction, no thrombus, normal left atrial size. The lorie ent has other issues including severe dementia. She is a do not resuscitate. I would basically aracelis t her with aspirin and antiarrhythmics. She continues to have issues with atrial fibrillation. If conchis nazario and she agree, then she should be a candidate for a pacemaker with ablation or may be even a [place] tchman. We will be happy to see her as an outpatient. CHARU/BANDAR Voice ID: [id number] Report ID: [id number]
== END 2021-04-24 16:28 | DRG 281 ==
LOC: ER 16:53 → ERHOLD 19:32 → 2ND 21:34
PROVIDERS: ADMIT Hospitalist; ATTEND Internal Medicine
DX: I48.91 Unspecified atrial fibrillation (principal); I21.A1 Myocardial infarction type 2; F02.81 Dementia in other diseases classified elsewhere, unspecified severity, with behavioral disturbance; G30.9 Alzheimer's disease, unspecified; M35.3 Polymyalgia rheumatica; G90.09 Other idiopathic peripheral autonomic neuropathy; F17.210 Nicotine dependence, cigarettes, uncomplicated; R00.1 Bradycardia, unspecified; Z66 Do not resuscitate; Z88.5 Allergy status to narcotic agent; Z79.899 Other long term (current) drug therapy; Z79.82 Long term (current) use of aspirin; Z90.710 Acquired absence of both cervix and uterus; Z20.822 Contact with and (suspected) exposure to COVID-19
CPT/HCPCS: 36415; 71045; 71260; 80048; 80053; 80061; 80076; 80164; 81003; 83690; 83735; 83880; 84145; 84443; 84484; 85025; 85610; 87086; 87088; 93005; 93306; 96361; 96372; 96374; 96375; 97161; 99285; J1650; J2930; J7030; Q9967; U0003

== ENCOUNTER 2021-05-09 10:26 | Inpatient (IN) | payer OTHER ==
--- OUTSIDE RECORDS SUMMARY | 2021-05-09 10:29 | XMS REPORT | Continuity of Care Document ---
:[address] [facility] t Address [address] [place] [address] Care Team Providers Name Role Phone Yo Butt MD Primary Care Physician Doctor Unassigned, Name Attending Clinician Unavailable Problems This patient has no known problems. Allergies, Adverse Reactions, Alerts This patient has no known allergies or adverse reactions. Social History Social Habit Start Date Stop Date Quantity Comments Source Sex Assigned At [birth year] [facility] ethodist 00:00:00 00:00:00 Medications This patient has no known medications. Procedures This patient has no known procedures. Plan of Care Planned Activity Planned Date Details Comments Source Future Scheduled 2021-06-23 INFLUENZA VACCINE [place] [facility] 00:00:00 [code = INFLUENZA VACCINE] Future Scheduled 2019-04-[address] [facility] thodist Test 00:00:00 SCREENING [code = BREAST CANCER SCREENING] Future Scheduled 1997 [facility]00 [code = COLONOSCOPY SCREENING] Future Scheduled 1997 SHINGLES VACCINES [place] [facility] 00:00:00 (#1) [code = SHINGLES VACCINES (#1)] Future Scheduled 1959 COVID-19 VACCINE (1) [facility] 00:00:00 [code = COVID-19 VACCINE (1)] Encounters Start End Encounter Admission Attending Care Care Encounter Source Date/Time Date/Time Type Type Clinicians Facility Department ID 2020-02-22 2020-02-22 Orders Doctor MARIANELA [id number] 00:00:00 00:00:00 Only UnassignedMARYANNE [id number] [facility] [id number] 2020-02-14 2020-02-14 Orders Doctor MARIANELA [id number] 00:00:00 00:00:00 Only UnassignedMARYANNE [id number] [facility] [id number] Results This patient has no known results.
[2021-05-09 11:27] LABS: Absolute Lymphocytes (CBC) 2.8 K/uL (0.7-4.9); Basophils % 0.7 % (0-1.3); Hematocrit 39.3 % (36.0-45.0); Lymphocytes % 22.3 % (15.3-44.8); MPV 9.2 fL (7.6-11.3); RBC Red Blood Cell Count 4.45 M/uL (3.86-4.86)
[2021-05-09 11:30] LABS: Protime INR 1.26
[2021-05-09 11:57] LABS: Albumin 2.4 g/dL (3.4-5.0); Bilirubin Direct 0.3 mg/dL (0-0.2); Bilirubin Total 0.8 mg/dL (0.2-1.0); Magnesium 2.4 mg/dL (1.8-2.4); Potassium 4.2 mmol/L (3.5-5.1); Protein, Total 7.4 g/dL (6.4-8.2); Troponin (Emerg Dept Use Only) 0.06 ng/mL (0.0-0.045)
--- NOTE | 2021-05-09 11:57 | RAD REPORT ---
EXAM DESCRIPTION: RAD - Chest Single View - 05/09/2021 11:20 am CLINICAL HISTORY: weakness, hypotension COMPARISON: April 20 TECHNIQUE: AP portable chest image was obtained 05/09/2021 11:20 am . FINDINGS: Right lung field and upper left lung field are clear of acute findings. Interstitial victoriano ngs are not substantially different. Left base assessment is limited due to under penetrated portable technique. Cardiac silhouette does appear enlarged slightly from comparison. Central vasculature is minimally more prominent. Retrocardiac left base and left costophrenic angle are obscured. This could be technical or due to small pleural effusion and atelectasis/ infiltrate. Trachea is midline. No pneumothorax. No acute bony abnormality seen. No acute aortic findings suspec vria. IMPRESSION: Portable chest was performed but is limited. Pleural effusion with infiltrate and/ or at electasis in the left base cannot be excluded.
[2021-05-09] MEDS ORDERED: NA CHLORIDE 0.9% 500 ML ONE (12:02)
[2021-05-09 12:05] LABS: Blood Morphology Comment NOT SEEN (NOT SEEN); Platelet Estimate ADEQ
--- NOTE | 2021-05-09 14:01 | ER ---
Nurse's Notes [facility] Name: Yuval Byrne Age: 75 yrs Sex: Female : 1945 Arrival Date: 05/09/2021 Time: 10:31 Bed 2 Private MD: Diagnosis: Vomiting;Hypotension;Dehydration Presentation: 05/09 10:36 Chief complaint: EMS states: Was toned for low BP and low HR. She was diagnosed and ca1 admitted here on the for new onset A-fib. they said she was not sent home with meds. Upon arrival on scene, BP was 98/50, HR ranges 40-100. NS bolus 400ml given, HR now steady in the 80-90s. A\\T\\Ox2 which is reported baseline. BGL 82, temp 97.9F. 20G LAC. Pt has no complains at this time. Denies chest pain. Denies SOB. Coronavirus screen: Client denies travel out of the [place] in the last 14 days. At this time, the client does not indicate any symptoms associated with coronavirus-19. Ebola Screen: Patient negative for fever greater than or equal to 101.5 degrees Fahrenheit, and additional compatible Ebola Virus Disease symptoms Patient denies exposure to infectious person. Patient denies travel to an Ebola-affected area in the 21 days before illness onset. No symptoms or risks identified at this time. Initial Sepsis Screen: Does the patient meet any 2 criteria? No. Patient's initial sepsis screen is negative. Does the patient have a suspected source of infection? No. Patient's initial sepsis screen is negative. Risk Assessment: Do you want to hurt yourself or someone else? Patient reports no desire to harm self or others. Onset of symptoms was May 09, 2021. 10:36 Method Of Arrival: EMS: [facility] ca1 10:36 Acuity: AMER[facility] 3 ca1 Historical: - Allergies: 10:44 HYDROCODONE; ca1 - Home Meds: 10:44 Depakote 125 mg Oral TbEC 3 tabs 2 times per day [Active]; donepezil 10 mg Oral tab 2 ca1 tab once daily [Active]; aspirin 81 mg Oral chew 1 tab once daily [Active]; atorvastatin 40 mg oral tab 1 tab once daily [Active]; gabapentin 400 mg Oral cap 1 cap 3 times per day [Active]; loratadine 10 mg Oral tab 1 tab once daily [Active]; Namenda XR 28 mg Oral CSpX 1 cap once daily [Active]; TYLENOL 325 MG 2 tabs every 6 hours [Active]; - PMHx: 10:44 Alzheimers; COGNITIVE DEFICIT; Dementia w/behavioral disturbance; generalized weakness; ca1 Idiopathic Peripheral Autonomic Neuropathy; polymyalgia rheumatica; Systemic Involvement of Connective Tissue; - Immunization history:: Client reports receiving the 2nd dose of the Covid vaccine, Client reports receiving the 1st dose of the Covid vaccine, Pneumococcal vaccine is up to date, Flu vaccine is up to date. - Social history:: Smoking status: Patient reports the use of cigarette tobacco products, 2 cigarettes a day. Screenin:45 Abuse screen: Denies threats or abuse. Denies injuries from another. Nutritional ca1 screening: No deficits noted. Tuberculosis screening: No symptoms or risk factors identified. Fall Risk Secondary diagnosis (15 points) dementia, IV access (20 points). Total Wade Fall Scale indicates Low Risk Score (25-44 pts). Fall prevention measures have been instituted. Side Rails Up X 2 Frequent Obs/Assesments occuring As available Patient and Family Educated on Fall Prevention Program and strategies. Assessment: 10:45 General: Appears in no apparent distress. comfortable, Behavior is calm, cooperative, ca1 appropriate for age. General: Appears Behavior is drowsy. Pain: Denies pain. Neuro: Level of Consciousness is obeys commands, lethargic, Oriented to person, place. Cardiovascular: Heart tones S1 S2 present Capillary refill < 3 seconds Patient's skin is warm and dry. Rhythm is atrial fibrillation. Respiratory: Airway is patent Respiratory effort is even, unlabored, Respiratory pattern is regular, symmetrical, Breath sounds are clear bilaterally. GI: Abdomen is flat, non-distended, Bowel sounds present X 4 quads. Abd is soft and non tender X 4 quads. : No signs and/or symptoms were reported regarding the genitourinary system. Derm: Skin is healthy with good turgor, Skin is pink, warm \\T\\ dry. Musculoskeletal: Circulation, motion, and sensation intact. Capillary refill < 3 seconds. 11:30 Reassessment: Patient appears in no apparent distress at this time. No changes from ca1 previously documented assessment. Patient and/or family updated on plan of care and expected duration. Pain level reassessed. 12:15 Reassessment: Patient appears in no apparent distress at this time. No changes from ca1 previously documented assessment. Patient and/or family updated on plan of care and expected duration. Pain level reassessed. 13:08 Reassessment: Patient appears in no apparent distress at this time. No changes from ca1 previously documented assessment. Patient and/or family updated on plan of care and expected duration. Pain level reassessed. 13:45 Reassessment: Patient appears in no apparent distress at this time. No changes from ca1 previously documented assessment. Patient and/or family updated on plan of care and expected duration. Pain level reassessed. 13:45 Reassessment: PO challenge tolerated. ca1 15:08 Reassessment: Patient appears in no apparent distress at this time. No changes from ca1 previously documented assessment. Patient and/or family updated on plan of care and expected duration. Pain level reassessed. 16:15 Reassessment: Patient appears in no apparent distress at this time. No changes from ca1 previously documented assessment. Patient and/or family updated on plan of care and expected duration. Pain level reassessed. 16:18 Reassessment: Called for report. Nurse will call back. ca1 16:41 Reassessment: Called for report, nurse will call back. ca1 16:47 Reassessment: Patient appears in no apparent distress at this time. No changes from ca1 previously documented assessment. Patient and/or family updated on plan of care and expected duration. Pain level reassessed. Vital Signs: 10:36 BP 98 / 51; Pulse 87; Resp 20; Temp 97.3(TE); Pulse Ox 94% on R/A; Pain 0/10; ca1 11:16 BP 89 / 62; Pulse 84; Resp 20; Pulse Ox 95% on R/A; ca1 12:05 BP 89 / 67; Pulse 82; Resp 17 S; Pulse Ox 97% on R/A; ca1 12:35 BP 89 / 51; Pulse 101; Resp 20 S; Pulse Ox 99% on R/A; ca1 12:50 BP 98 / 57; Pulse 95; Resp 20; Pulse Ox 95% on R/A; ca1 13:09 BP 102 / 70; Pulse 94; Resp 16 S; Pulse Ox 93% on R/A; ca1 13:30 BP 94 / 51; Pulse 90; Resp 15 S; Pulse Ox 94% on R/A; ca1 13:50 BP 97 / 81; Pulse 90; Resp 20 S; Pulse Ox 96% on R/A; ca1 14:55 BP 103 / 55; Pulse 97; Resp 19 S; Pulse Ox 93% on R/A; ca1 16:15 BP 108 / 79; Pulse 97; Resp 17 S; Pulse Ox 94% on R/A; ca1 16:47 BP 112 / 69; Pulse 96; Resp 18 S; Pulse Ox 94% on R/A; ca1 ED Course: 10:31 Patient arrived in ED. bd 10:36 Alissa Dodson, RN is Primary Nurse. ca1 10:41 Triage completed. ca1 10:44 Arm band placed on right wrist. ca1 10:45 Patient has correct armband on for positive identification. Bed in low position. Call ca1 light in reach. Side rails up X2. shelter monitor on. Pulse ox on. NIBP on. Warm blanket given. 10:53 Tai Park MD is Attending Physician. kdr 11:14 Initial lab(s) drawn, by ED staff, sent to lab. Inserted saline lock: 20 gauge in right ca1 antecubital area, using aseptic technique. Blood collected. 11:20 XRAY Chest (1 view) In Process Unspecified. EDMS 13:54 COVID-19 : Document "Date of Symptom Onset" if Symptomatic. Sent. ca1 13:59 Jimmy Giles is Hospitalizing Provider. kdr 14:03 Abdomen In Process Unspecified. EDMS 16:16 No provider procedures requiring assistance completed. Patient admitted, IV remains in ca1 place. Administered Medications: 11:15 Drug: NS 0.9% 500 ml Route: IV; Rate: bolus; Site: right antecubital; ca1 12:00 Follow up: IV Status: Completed infusion; IV Intake: 500ml ca1 11:44 Drug: NS 0.9% 500 ml Route: IV; Rate: bolus; Site: right antecubital; ca1 12:30 Follow up: Response: No adverse reaction; IV Status: Completed infusion; IV Intake: ca1 500ml 14:52 Drug: Zofran (Ondansetron) 4 mg Route: IVP; Site: right antecubital; ca1 16:17 Follow up: Response: No adverse reaction; Nausea is decreased ca1 14:53 Drug: Zithromax (azithromycin) 500 mg Route: PO; ca1 16:17 Follow up: Response: No adverse reaction ca1 14:55 Drug: Rocephin - (cefTRIAXone) 1 grams Route: IVPB; Infused Over: 30 mins; Site: right ca1 antecubital; 15:30 Follow up: Response: No adverse reaction; IV Status: Completed infusion ca1 Intake: 12:00 IV: 500ml; Total: 500ml. ca1 12:30 IV: 500ml; Total: 1000ml. ca1 Outcome: 14:00 Decision to Hospitalize by Provider. kdr 16:40 Instructed on the need for admit. ca1 16:48 Admitted to Med/surg accompanied by tech, via stretcher, room 204, with chart, Report ca1 called to CONSTANTINE Batres 16:48 Condition: stable 17:02 Patient left the ED. ca1 Signatures: Dispatcher [employer] EDMS Mee Moncada Kevin, MD MD kdr Acob, Cheryl, RN RN ca1 Corrections: (The following items were deleted from the chart) 11:30 10:45 Neuro: Level of Consciousness is awake, obeys commands, Oriented to person, ca1 place, ca1 16:49 10:45 Derm: Skin is intact, is healthy with good turgor, Skin is pink, warm \\T\\ dry. ca1 ca1
--- NOTE | 2021-05-09 14:01 | EDPHYS ---
Physician Documentation [facility] Name: Yuval Byrne Age: 75 yrs Sex: Female : 1945 Arrival Date: 05/09/2021 Time: 10:31 Bed 2 Private MD: ED Physician Tai Park HPI: 05/09 18:23 This 75 yrs old Female presents to ER via EMS with complaints of Low BP and kdr HR. 18:26 The patient has been generally weak and was noted to have low BP/HR. Onset: The kdr symptoms/episode began/occurred at an unknown time. Severity of symptoms: At their worst the symptoms were mild in the emergency department the symptoms are unchanged. It is unknown whether or not the patient has had similar symptoms in the past. It is unknown whether or not the patient has recently seen a physician. Historical: - Allergies: 10:44 HYDROCODONE; ca1 - Home Meds: 10:44 Depakote 125 mg Oral TbEC 3 tabs 2 times per day [Active]; donepezil 10 mg Oral tab 2 ca1 tab once daily [Active]; aspirin 81 mg Oral chew 1 tab once daily [Active]; atorvastatin 40 mg oral tab 1 tab once daily [Active]; gabapentin 400 mg Oral cap 1 cap 3 times per day [Active]; loratadine 10 mg Oral tab 1 tab once daily [Active]; Namenda XR 28 mg Oral CSpX 1 cap once daily [Active]; TYLENOL 325 MG 2 tabs every 6 hours [Active]; - PMHx: 10:44 Alzheimers; COGNITIVE DEFICIT; Dementia w/behavioral disturbance; generalized weakness; ca1 Idiopathic Peripheral Autonomic Neuropathy; polymyalgia rheumatica; Systemic Involvement of Connective Tissue; - Immunization history:: Client reports receiving the 2nd dose of the Covid vaccine, Client reports receiving the 1st dose of the Covid vaccine, Pneumococcal vaccine is up to date, Flu vaccine is up to date. - Social history:: Smoking status: Patient reports the use of cigarette tobacco products, 2 cigarettes a day. ROS: 18:26 Constitutional: Negative for fever, chills, and weight loss, Eyes: Negative for injury, kdr pain, redness, and discharge, Neck: Negative for injury, pain, and swelling, Cardiovascular: Negative for chest pain, palpitations, and edema, Respiratory: Negative for shortness of breath, cough, wheezing, and pleuritic chest pain, Abdomen/GI: Negative for abdominal pain, nausea, vomiting, diarrhea, and constipation, Back: Negative for injury and pain, : Negative for injury, bleeding, discharge, and swelling, MS/Extremity: Negative for injury and deformity, Skin: Negative for injury, rash, and discoloration, Psych: Negative for depression, anxiety, suicide ideation, homicidal ideation, and hallucinations, Allergy/Immunology: Negative for hives, rash, and allergies, Endocrine: Negative for neck swelling, polydipsia, polyuria, polyphagia, and marked weight changes, Hematologic/Lymphatic: Negative for swollen nodes, abnormal bleeding, and unusual bruising. 18:26 Neuro: Positive for Exam: 18:26 Constitutional: This is a well developed, well nourished patient who is awake, alert, kdr and in no acute distress. Head/Face: Normocephalic, atraumatic. Eyes: Pupils equal round and reactive to light, extra-ocular motions intact. Lids and lashes normal. Conjunctiva and sclera are non-icteric and not injected. Cornea within normal limits. Periorbital areas with no swelling, redness, or edema. Neck: Trachea midline, no thyromegaly or masses palpated, and no cervical lymphadenopathy. Supple, full range of motion without nuchal rigidity, or vertebral point tenderness. No Meningismus. Chest/axilla: Normal chest wall appearance and motion. Nontender with no deformity. No lesions are appreciated. Cardiovascular: Regular rate and rhythm with a normal S1 and S2. No gallops, murmurs, or rubs. Normal PMI, no JVD. No pulse deficits. Respiratory: Lungs have equal breath sounds bilaterally, clear to auscultation and percussion. No rales, rhonchi or wheezes noted. No increased work of breathing, no retractions or nasal flaring. Abdomen/GI: Soft, non-tender, with normal bowel sounds. No distension or tympany. No guarding or rebound. No evidence of tenderness throughout. Back: No spinal tenderness. No costovertebral tenderness. Full range of motion. Skin: Warm, dry with normal turgor. Normal color with no rashes, no lesions, and no evidence of cellulitis. MS/ Extremity: Pulses equal, no cyanosis. Neurovascular intact. Full, normal range of motion. Neuro: Awake and alert, GCS 15, oriented to person, place, time, and situation. Cranial nerves II-XII grossly intact. Motor strength 5/5 in all extremities. Sensory grossly intact. Cerebellar exam normal. Normal gait. Psych: Awake, alert, with orientation to person, place and time. Behavior, mood, and affect are within normal limits. Vital Signs: 10:36 BP 98 / 51; Pulse 87; Resp 20; Temp 97.3(TE); Pulse Ox 94% on R/A; Pain 0/10; ca1 11:16 BP 89 / 62; Pulse 84; Resp 20; Pulse Ox 95% on R/A; ca1 12:05 BP 89 / 67; Pulse 82; Resp 17 S; Pulse Ox 97% on R/A; ca1 12:35 BP 89 / 51; Pulse 101; Resp 20 S; Pulse Ox 99% on R/A; ca1 12:50 BP 98 / 57; Pulse 95; Resp 20; Pulse Ox 95% on R/A; ca1 13:09 BP 102 / 70; Pulse 94; Resp 16 S; Pulse Ox 93% on R/A; ca1 13:30 BP 94 / 51; Pulse 90; Resp 15 S; Pulse Ox 94% on R/A; ca1 13:50 BP 97 / 81; Pulse 90; Resp 20 S; Pulse Ox 96% on R/A; ca1 14:55 BP 103 / 55; Pulse 97; Resp 19 S; Pulse Ox 93% on R/A; ca1 16:15 BP 108 / 79; Pulse 97; Resp 17 S; Pulse Ox 94% on R/A; ca1 16:47 BP 112 / 69; Pulse 96; Resp 18 S; Pulse Ox 94% on R/A; ca1 MDM: 14:00 Patient medically screened. kdr 18:26 Data reviewed: vital signs, nurses notes, lab test result(s), radiologic studies. kdr Counseling: I had a detailed discussion with the patient and/or guardian regarding: the historical points, exam findings, and any diagnostic results supporting the discharge/admit diagnosis, lab results, radiology results, the need for further work-up and treatment in the hospital. 05/09 10:59 Order name: Basic Metabolic Panel; Complete Time: 13:41 kdr 05/09 10:59 Order name: CBC with Diff; Complete Time: 13:41 kdr 05/09 10:59 Order name: LFT's; Complete Time: 13:41 [facility] 05/09 10:59 Order name: Magnesium; Complete Time: 13:41 [facility] 05/09 10:59 Order name: NT PRO-BNP; Complete Time: 13:41 [facility] 05/09 10:59 Order name: PT-INR; Complete Time: 13:41 [facility] 05/09 10:59 Order name: Troponin (emerg Dept Use Only); Complete Time: 13:41 [facility] 05/09 10:59 Order name: XRAY Chest (1 view); Complete Time: 13:41 [facility] 05/09 11:30 Order name: Manual Differential; Complete Time: 13:41 [facility] 05/09 13:44 Order name: COVID-19 : Document "Date of Symptom Onset" if Symptomatic. [facility] 05/09 13:45 Order name: CORONAVIRUS [facility] 05/09 13:48 Order name: Abdomen ; Complete Time: 14:35 [facility] 05/09 15:31 Order name: SARS-COV-2 RT PCR [facility] 05/09 10:59 Order name: EKG; Complete Time: 11:00 [facility] 05/09 10:59 Order name: Cardiac monitoring; Complete Time: 11:14 [facility] 05/09 10:59 Order name: EKG - Nurse/Tech; Complete Time: 11:14 [facility] 05/09 10:59 Order name: IV Saline Lock; Complete Time: 11:14 [facility] 05/09 10:59 Order name: Labs collected and sent; Complete Time: 11:14 [facility] 05/09 10:59 Order name: O2 Per Protocol; Complete Time: 11:14 [facility] 05/09 10:59 Order name: O2 Sat Monitoring; Complete Time: 11:14 [facility] 05/09 13:42 Order name: PO challenge; Complete Time: 13:57 kdr Administered Medications: 11:15 Drug: NS 0.9% 500 ml Route: IV; Rate: bolus; Site: right antecubital; ca1 12:00 Follow up: IV Status: Completed infusion; IV Intake: 500ml ca1 11:44 Drug: NS 0.9% 500 ml Route: IV; Rate: bolus; Site: right antecubital; ca1 12:30 Follow up: Response: No adverse reaction; IV Status: Completed infusion; IV Intake: ca1 500ml 14:52 Drug: Zofran (Ondansetron) 4 mg Route: IVP; Site: right antecubital; ca1 16:17 Follow up: Response: No adverse reaction; Nausea is decreased ca1 14:53 Drug: Zithromax (azithromycin) 500 mg Route: PO; ca1 16:17 Follow up: Response: No adverse reaction ca1 14:55 Drug: Rocephin - (cefTRIAXone) 1 grams Route: IVPB; Infused Over: 30 mins; Site: right ca1 antecubital; 15:30 Follow up: Response: No adverse reaction; IV Status: Completed infusion ca1 Disposition: 05/09/21 14:00 Hospitalization ordered by iJmmy Giles for Observation. Preliminary diagnosis are Vomiting, Hypotension, Dehydration. - Bed requested for Telemetry/MedSurg (observation). - Status is Observation. ca1 - Condition is Fair. - Problem is new. - Symptoms have improved. Signatures: Dispatcher [employer] EDMS Shanda Robbins RN RN dw Tai Park MD MD [facility] Alissa Dodson RN RN ca1 Corrections: (The following items were deleted from the chart) 13:48 13:44 Abdomen Pelvis W Con+CT.RAD.BRZ ordered. EDFL EDFL 15:46 14:00 Hospitalization Ordered by Jimmy Giles for Observation. Preliminary diagnosis dw is Vomiting; Hypotension; Dehydration. Bed requested for Telemetry/MedSurg (observation). Status is Observation. Condition is Fair. Problem is new. Symptoms have improved. kdr 17:02 15:46 05/09/2021 14:00 Hospitalization Ordered by Jimmy Giles for Observation. ca1 Preliminary diagnosis is Vomiting; Hypotension; Dehydration. Bed requested for Telemetry/MedSurg (observation). Status is Observation. Condition is Fair. Problem is new. Symptoms have improved. dw
--- NOTE | 2021-05-09 14:16 | RAD REPORT ---
EXAM DESCRIPTION: CT - Abdomen Pelvis Wo Contrast - 05/09/2021 2:04 pm CLINICAL HISTORY: Abdominal pain. vomiting;Abd pain COMPARISON: Thorax W/ Con dated 04/21/2021 TECHNIQUE: CT imaging of the abdomen and pelvis was performed without contrast. Solid organ, bowel a nd vascular assessment is limited due to lack of IV and oral contrast. All CT scans are performed using dose optimization technique as appropriate and may include automated exposure control or mA/KV adjustment according to patient size. FINDINGS: Small left pleural effusion is seen with airspace opacity in the posterior left lung base, suspicious for infiltrate/ pneumonia. The liver, spleen, pancreas, adrenal glands and kidneys are within normal limits for a limited non-co ntrast examination. No bowel obstruction, free air, free fluid or abscess. The appendix is not identified as a discrete structure, however, no secondary findings of appendicitis are identified. Mild lumbar degenerative changes. IMPRESSION: Left basilar infiltrate with pleural effusion probably represents pneumonia. No acute in tra-abdominal or pelvic finding seen. A limited non-contrast examination was performed as detailed.
--- NOTE | 2021-05-09 14:18 | P.HP ---
Certification for Inpatient Patient admitted to: Inpatient With expected LOS: >2 Midnights Practitioner: I am a practitioner with admitting privileges, knowledge of patient current condition, hospital course, and medical plan of care. Services: Services provided to patient in accordance with Admission requirements found in Title 42 Section 412.3 of the Code of Federal Regulations Patient History Date of Service: 05/09/21 Reason for admission: Low blood pressure and low heart rate History of Present Illness: 75-year-old woman with a history of frontotemporal dementia was transferred from the care home to emergency department course patient was noted to have low blood pressure with systolic in the 80s. Nursing also reports generalized weakness. Patient looked restless during my examination in the ED. She has dementia and not able to give any subjective complain. She denied any pain or shortness of breath or fever. CT abdomen and pelvis done in the emergency dep artment demonstrates left basilar opacity with pleural effusion. [place] [id number]. BNP elevated. Her systolic blood pressure was occasionally low in the ED, as low as 89. Troponin is mildly elevated to 0.06. EKG unremarkable with no ischemic changes. Patient is hospitalized for further management. Allergies hydrocodone Allergy (Verified 04/20/21 22:31) Hives/Rash Home Medications: Acetaminophen [Tylenol] 650 mg PO Q6H PRN 04/21/21 Divalproex Sodium [Depakote Sprinkle] 375 mg PO BID 04/21/21 Donepezil HCl 20 mg PO BEDTIME 04/21/21 Gabapentin [Neurontin*] 400 mg PO TID 04/21/21 Loratadine [Claritin*] 10 mg PO DAILY 04/21/21 Memantine HCl [Namenda Xr] 28 mg PO DAILY 04/21/21 Aspirin [Aspirin EC] 81 mg PO DAILY #30 tablet. 04/24/21 Atorvastatin Calcium [Lipitor] 40 mg PO BEDTIME tab 04/24/21 - Past Medical/Surgical History -: Dementia with behavioral disturbance -: Polymyalgia rheumatica -: Atrial fibrillation -: Hysterectomy -: Glaucoma Psychosocial/ Personal History: Resident of [facility] for the last 2 years - Family History Father -: Heart disease - Social History Alcohol use: No CD- Drugs: No Place of Residence: [facility] Term Review of Systems is unable to be obtained (Due to advanced dementia) Physical Examination - Physical Exam General: In no apparent distress, Confused HEENT: PERRLA, Mucous membr. moist/pink, EOMI, Sclerae nonicteric Neck: Supple, JVD not distended Respiratory: Clear to auscultation bilaterally, Normal air movement Cardiovascular: No edema, Normal S1 S2, Irregular heart rate/rhythm Capillary refill: <2 Seconds Gastrointestinal: Normal bowel sounds, Soft and benign, Non-distended, No tenderness Musculoskeletal: No swelling, No tenderness Integumentary: No rashes, No erythema Neurological: Normal speech, Normal strength at 5/5 x4 extr Lymphatics: No axilla or inguinal lymphadenopathy - Studies Laboratory Data (last 24 hrs) 05/09/21 11:10: PT 14.5 H, INR 1.26 05/09/21 11:10: WBC 12.60 H, Hgb 13.2, Hct 39.3, Plt Count 337 05/09/21 11:10: Sodium 138, Potassium 4.2, BUN 15, Creatinine 2.02 H, Glucose 99, Magnesium 2.4, Total Bilirubin 0.8, AST 7 L, ALT 7 L, Alkaline Phosphatase 56 Assessment and Plan - Problems (Diagnosis) (1) Hypotension Current Visit: Yes Status: Acute (2) Pneumonia Current Visit: Yes Status: Acute (3) Chronic atrial fibrillation Current Visit: Yes Status: Acute (4) Acute renal failure Current Visit: Yes Status: Acute (5) Elevated troponin Current Visit: Yes Status: Acute - Plan Admit patient to the medical floor. Start aggressive antibiotic treatment-with IV Levaquin and vancomycin to cover a healthcare associated pneumonia. Slow IV hydration Check lactic acid. Blood cultures. Obtain urinalysis with reflex culture. Troponin mildly elevated. Patient is without symptoms. Elevated troponin likely secondary to demand ischemia. Continue to trend troponin. Continue aspirin. Validate and reconcile home medications. - Advance Directives Does patient have a Living Will: No Does patient have a Durable POA for Healthcare: No
[2021-05-09] MEDS ORDERED: ONDANSETRON 4 MG/2 ML VIAL ONE (15:15)
[2021-05-09] MEDS ORDERED: AZITHROMYCIN 250 MG TAB ONE (15:15)
[2021-05-09] MEDS ORDERED: CEFTRIAXONE/SWI 1gm 1 GM/10 ML SYR ONE (15:16)
[2021-05-09] MEDS ORDERED: ACETAMINOPHEN 500 MG TAB PO PRN (16:56)
[2021-05-09] MEDS ORDERED: ONDANSETRON 4 MG/2 ML VIAL IV PRN (16:56)
[2021-05-09] MEDS ORDERED: VANCOMYCIN 1 GM in NA CHLORIDE 0.9% 250 ML IVPB SCH (16:56)
[2021-05-09] MEDS: NA CHLORIDE 0.9% 1,000 ML IV SCH (17:38)
[2021-05-09] MEDS ORDERED: Levofloxacin 750mg IV 750 MG/150 ML BAG IV ONE (18:00)
[2021-05-09] MEDS: HEPARIN 5000 UNIT/ML 1 ML VIAL SQ SCH (18:27)
[2021-05-09] MEDS ORDERED: IPRATROPIUM BROM 0.5MG/2.5ML NEB PRN (18:38)
[2021-05-09] MEDS ORDERED: LEVALBUTEROL 0.63 MG/3 ML NEB NEB PRN (18:38)
[2021-05-09 19:13] LABS: Urine Appearance CLOUDY (Clear); Urine Blood NEGATIVE (Negative); Urine Color DK YELLOW (Yellow); Urine Glucose NEGATIVE (Negative); Urine Protein 1+ (Negative); Urine pH 5.5 (5.0-7.0)
[2021-05-09 19:22] LABS: Urine Bilirubin NEGATIVE (Negative); Urine Microscopic Reflex ORDER UMIC
[2021-05-09 19:25] LABS: Urine Amorphous Sediment 4+ /HPF (NONE SEEN); Urine Bacteria 20-50 /HPF (<20); Urine RBC NONE SEEN /HPF (NONE SEEN)
[2021-05-09] MEDS ORDERED: VANCOMYCIN 1.25 GM in NA CHLORIDE 0.9% 250 ML IVPB SCH (20:00)
[2021-05-10 01:19] VITALS: BMI 29.2
[2021-05-10] MEDS: HEPARIN 5000 UNIT/ML 1 ML VIAL SQ SCH ×3 (01:36→16:33)
[2021-05-10 06:09] LABS: Absolute Lymphocytes (CBC) 1.5 K/uL (0.7-4.9); Basophils % 0.5 % (0-1.3); Hematocrit 36.6 % (36.0-45.0); MPV 9.6 fL (7.6-11.3); RBC Red Blood Cell Count 4.16 M/uL (3.86-4.86)
[2021-05-10 06:14] LABS: Protime INR 1.34
[2021-05-10] MEDS: NA CHLORIDE 0.9% 1,000 ML IV SCH (06:16)
[2021-05-10 06:33] LABS: Bilirubin Total 0.6 mg/dL (0.2-1.0); Magnesium 2.3 mg/dL (1.8-2.4); Phosphorus 3.2 mg/dL (2.5-4.9); Potassium 4.5 mmol/L (3.5-5.1); Protein, Total 6.6 g/dL (6.4-8.2); Thyroid Stimulating Hormone 1.16 uIU/mL (0.360-3.740)
--- NOTE | 2021-05-10 07:27 | P.CNS ---
Date of Consult: 05/10/21 Reason for Consult: DARIO Requesting Physician: merle tim Chief Complaint: Low blood pressure and low heart rate History of Present Illness: 75F [facility] w/ PMHx of chronic afib & frontotemporal dementia who p/w hypotension and generalized weakness,admitted for pneumonia and referred to nephrology for DARIO. he has BP initially in the low 80s but BP is now stable. She had leukocytosis and elevated BNP. She received antibiotics. her baseline serum creatinine is 0.6-0.8 as of 04/24/2021. Serum creatinine on admission is 2.0 and currently improved to 1.0. Allergies hydrocodone Allergy (Mild, Verified 05/09/21 17:44) Hives/Rash Home Medications: Divalproex Sodium [Depakote Sprinkle] 375 mg PO BID 04/21/21 Donepezil HCl 20 mg PO BEDTIME 04/21/21 Aspirin [Aspirin EC] 81 mg PO DAILY #30 tablet. 04/24/21 Atorvastatin Calcium [Lipitor] 40 mg PO BEDTIME tab 04/24/21 - Past Medical/Surgical History Diabetic: No -: Dementia with behavioral disturbance -: Polymyalgia rheumatica -: Atrial fibrillation -: Hysterectomy -: Glaucoma Psychosocial/ Personal History: Resident of [facility] for the last 2 years - Family History Father Medical History: Heart disease - Social History Alcohol use: No CD- Drugs: No Place of Residence: [facility] Review of Systems Other: unable to obtain at this time given her AMS Physical Examination Temp Pulse Resp BP Pulse Ox 97.8 F 105 H 20 124/63 93 05/10/21 04:00 05/10/21 04:00 05/10/21 04:00 05/10/21 04:00 05/10/21 04:00 General: Other (appears chronically ill) HEENT: Atraumatic, Normocephalic Neck: Supple Respiratory: Diminished Cardiovascular: Normal S1 S2, No rubs, No murmurs Gastrointestinal: Soft and benign, Non-distended Musculoskeletal: No clubbing Integumentary: Other (normal temperature) Neurological: Normal tone Urinary: Other (no bladder distention) External genitalia: Deferred Rectal: Deferred Laboratory Data (last 24 hrs) 05/09/21 11:10: PT 14.5 H, INR 1.26 05/09/21 11:10: WBC 12.60 H, Hgb 13.2, Hct 39.3, Plt Count 337 05/09/21 11:10: Sodium 138, Potassium 4.2, BUN 15, Creatinine 2.02 H, Glucose 99, Magnesium 2.4, Total Bilirubin 0.8, AST 7 L, ALT 7 L, Alkaline Phosphatase 56 Conclusions/Impression: # DARIO 2/2 prerenal state +/- ATN/sepsis baseline serum creatinine 0.6-0.8 as of SCr on admission 2.0 now improved to 1.0 Encourage by mouth fluid intake as able IV hydration when necessary Monitor renal panel AMELIA Alvarez today # Severe sepsis 2/2 PNA chest imaging showed left sided opacity and effusion On antibiotics per primary team Follow cultures # Hypotension likely 2/2 severe sepsis Resolved BNP elevated likely driven by her acute respiratory issues TTE on 04/23/2021 was unremarkable Sepsis mngt as above # Atrial flutter Management per other services Amiodarone, ASA
--- NOTE | 2021-05-10 07:41 | EKG ---
Test Date: 2021-05-09 Test Time: 11:10:39 [employer] Web [employer] Developer: BENJIE MEASUREMENT RESULTS: Intervals: Rate: 87 CA: QRSD: 70 QT: 390 QTc: 469 [place]: P: CA: QRS: -14 T: 112 INTERPRETIVE STATEMENTS: Atrial fibrillation with premature ventricular or aberrantly conducted complexes Low voltage QRS T wave abnormality, consider inferior ischemia or digitalis effect Abnormal ECG Compared to ECG 04/20/2021 22:46:32 Ventricular premature complex(es) now present Low QRS voltage now present T-wave abnormality now present Possible ischemia now present Left-axis deviation no longer present ST (T wave) deviation no longer present Electronically Signed On 05-10-21 07:39:28 CDT by Rico Chilel
[2021-05-10] MEDS: AMIODARONE HCL 200 MG TAB PO SCH ×2 (16:33→21:00)
--- NOTE | 2021-05-10 17:10 | P.PN ---
Subjective Date of Service: 05/10/21 Chief Complaint: Low blood pressure and low heart rate Patient has no complain and desires to go back to the assisted. She developed sinus tachycardia followed by atrial flutter. Heart rate was up to 150-160. Patient is asymptomatic. Blood pressure readings are better today. Physical Examination - Vital Signs Temperature: 98.0 F Blood Pressure: 166/72 Pulse: 102 Respirations: 20 Pulse Ox (%): 94 - Physical Exam General: Alert, In no apparent distress, Oriented x3 HEENT: Mucous membr. moist/pink Neck: Supple, JVD not distended Respiratory: Clear to auscultation bilaterally, Normal air movement Cardiovascular: No edema, Normal S1 S2, Irregular heart rate/rhythm Gastrointestinal: Normal bowel sounds, Soft and benign, Non-distended, No tenderness Musculoskeletal: No swelling, No tenderness Integumentary: No rashes Neurological: Normal strength at 5/5 x4 extr Assessment And Plan - Current Problems (Diagnosis) (1) Hypotension Current Visit: Yes Status: Acute (2) Pneumonia Current Visit: Yes Status: Acute (3) Chronic atrial fibrillation Current Visit: Yes Status: Acute (4) Acute renal failure Current Visit: Yes Status: Acute (5) Elevated troponin Current Visit: Yes Status: Acute (6) UTI (urinary tract infection) Current Visit: Yes Status: Acute (7) Atrial flutter Current Visit: Yes Status: Acute - Plan Troponin trended down. No ACS. Elevated troponin likely secondary to demand ischemia. IV Rocephin and vancomycin to cover a healthcare associated pneumonia. Acute renal failure resolved. Continue Slow IV hydration Blood cultures pending. Urinalysis suggest possible UTI. Urine culture is pending. Atrial flutter discussed with Dr. Chilel who recommended amiodarone. Patient started on amiodarone 400 mg b.i.d. Continue cardiac monitoring. Monitor and optimize electrolytes. Continue aspirin.
[2021-05-10] MEDS ORDERED: AMIODARONE HCL 200 MG TAB PO SCH (21:00)
[2021-05-11] MEDS: NA CHLORIDE 0.9% 1,000 ML IV SCH (00:23)
[2021-05-11] MEDS: HEPARIN 5000 UNIT/ML 1 ML VIAL SQ SCH ×2 (00:24→08:32)
[2021-05-11] MEDS ORDERED: AMIODARONE HCL 200 MG TAB PO SCH (05:00)
[2021-05-11 06:07] LABS: Absolute Lymphocytes (CBC) 1.5 K/uL (0.7-4.9); Basophils % 0.6 % (0-1.3); Hematocrit 34.5 % (36.0-45.0); Lymphocytes % 19.8 % (15.3-44.8); MPV 9.3 fL (7.6-11.3); RBC Red Blood Cell Count 3.97 M/uL (3.86-4.86)
[2021-05-11 06:26] LABS: Potassium 3.9 mmol/L (3.5-5.1)
[2021-05-11] MEDS ORDERED: POTASSIUM CL SA 10 MEQ TAB PO ONE (08:00)
[2021-05-11] MEDS ORDERED: CEFTRIAXONE/SWI 1gm 1 GM/10 ML SYR IV SCH (09:00)
[2021-05-11 10:18] VITALS: O2SAT 92
--- NOTE | 2021-05-11 11:00 | P.DS ---
Admission Date: 05/09/21 Discharge Date: 05/11/21 Disposition: TRANSFER TO LONGTERM Discharge Condition: FAIR Reason for Admission: Low blood pressure and low heart rate Consultations: Renal-Dr. Painting - Problems (1) Hypotension Current Visit: Yes Status: Acute (2) Pneumonia Current Visit: Yes Status: Acute (3) Chronic atrial fibrillation Current Visit: Yes Status: Acute (4) Acute renal failure Current Visit: Yes Status: Acute (5) Elevated troponin Current Visit: Yes Status: Acute (6) UTI (urinary tract infection) Current Visit: Yes Status: Acute (7) Atrial flutter Current Visit: Yes Status: Acute Brief History of Present Illness: 75-year-old woman with a history of frontotemporal dementia was transferred from the senior care to emergency department course patient was noted to have low blood pressure with systolic in the 80s. Nursing also reports generalized weakness. Patient looked restless during my examination in the ED. She has dementia and not able to give any subjective complain. She denied any pain or shortness of breath or fever. CT abdomen and pelvis done in the emergency depar tment demonstrates left basilar opacity with pleural effusion. [place] [address]. BNP elevated. Her systolic blood pressure was occasionally low in the ED, as low as 89. Troponin is mildly elevated to 0.06. EKG unremarkable with no ischemic changes. Patient hospitalized for further management. Hospital Course: Patient admitted to the medical floor and treated with IV antibiotics for pneumonia and IV fluids for acute renal failure. Acute renal failure resolved with IV hydration. Patient had no fever or cough or shortness of breath and was physically asymptomatic. She was seen by nephrology-Dr. Painting who assisted with the acute renal failure management. Patient was suspected to have UTI from the urinalysis but urine culture yielded no growth. Patient was also asymptomatic. She developed rapid atrial fibrillation. Case was discussed with cardiology-Dr. Chilel recommended amiodarone 400 mg b.i.d. Patient's heart rate and blood pressure were stable on amiodarone. She is discharged with amiodarone 400 mg b.i.d. x7 days followed by amiodarone 20 mg b.i.d. she is also prescribed Augmentin to continue treatment for pneumonia. Vital Signs/Physical Exam: Temp Pulse Resp BP Pulse Ox 98.3 F 54 17 135/67 95 05/11/21 08:00 05/11/21 08:00 05/11/21 08:00 05/11/21 08:00 05/11/21 08:00 General: In no apparent distress HEENT: Mucous membr. moist/pink Neck: JVD not distended Respiratory: Clear to auscultation bilaterally, Normal air movement Cardiovascular: No edema, Normal S1 S2, Irregular heart rate/rhythm Gastrointestinal: Normal bowel sounds, Soft and benign, No tenderness Musculoskeletal: No swelling Neurological: Normal strength at 5/5 x4 extr Laboratory Data at Discharge: WBC 7.80 K/uL (4.3-10.9) D 05/11/21 05:54 Hgb 11.8 g/dL (12.0-15.0) L 05/11/21 05:54 Hct 34.5 % (36.0-45.0) L 05/11/21 05:54 Plt Count 292 K/uL (152-406) 05/11/21 05:54 PT 15.4 SECONDS (9.5-12.5) H 05/10/21 05:35 INR 1.34 05/10/21 05:35 Sodium 140 mmol/L (136-145) 05/11/21 05:54 Potassium 3.9 mmol/L (3.5-5.1) 05/11/21 05:54 BUN 10 mg/dL (7-18) 05/11/21 05:54 Creatinine 0.74 mg/dL (0.55-1.3) 05/11/21 05:54 Glucose 98 mg/dL (74-106) 05/11/21 05:54 Phosphorus 3.2 mg/dL (2.5-4.9) 05/10/21 05:35 Magnesium 2.3 mg/dL (1.8-2.4) 05/10/21 17:38 Total Bilirubin 0.6 mg/dL (0.2-1.0) 05/10/21 05:35 AST 7 U/L (15-37) L 05/10/21 05:35 ALT 8 U/L (12-78) L 05/10/21 05:35 Alkaline Phosphatase 52 U/L (45-117) 05/10/21 05:35 Troponin I 0.04 ng/mL (0.0-0.045) 05/09/21 20:54 Home Medications: Divalproex Sodium [Depakote Sprinkle] 375 mg PO BID 04/21/21 Donepezil HCl 20 mg PO BEDTIME 04/21/21 Aspirin [Aspirin EC] 81 mg PO DAILY #30 tablet. 04/24/21 Atorvastatin Calcium [Lipitor] 40 mg PO BEDTIME tab 04/24/21 Amiodarone HCl [Cordarone*] 400 mg PO 0500,1700 tab 05/11/21 Amox/Clavulanate [Augmentin 875-125 Tab] 1 each PO BID #10 tab 05/11/21 New Medications: Amox/Clavulanate [Augmentin 875-125 Tab] 1 each PO BID #10 tab Diet: AHA Activity: Fall precautions Followup: NONE,NONE [Primary Care Provider] - Rico Chilel MD [ACTIVE - CAN ADMIT] - (within 2 weeks.) Time spent managing pt's care (in minutes): 32
--- NOTE | 2021-05-11 12:03 | CON ---
Reason For Consultation: Admitted to Dr. Giles on 05/09/2021 with acute renal failure that has reso lved. While she has been here, being hydrated. She developed rapid atrial flutter and I was consult ed. History Of Present Illness: Ms. Byrne is 75. Has a history of severe Alzheimer dementia, dyslipid emia, paroxysmal atrial fibrillation, and neuropathy. She was recently in the hospital for altered m ental status, paroxysmal atrial fibrillation, intolerant to beta-kay because she got very bradyca rdic. She eventually went home on a baby aspirin and anticoagulants and was brought back with acute renal failure. Yesterday, she went into rapid atrial flutter. Amiodarone was started p.o. She is b ack in sinus rhythm now. She is not bradycardic and she is tolerating the dose well. Echocardiogram which was done when she was here last time was perfectly normal. Past Medical History: As stated above. Allergies: SHE IS ALLERGIC TO . Social History: Unremarkable. Family History: Unremarkable. Medications: At home include Lipitor, aspirin, Depakote, and Neurontin. Physical Examination: Vital Signs: Stable. She was in sinus shakira. HEENT: Negative. Neck: Supple with no bruit. Chest: Clear. Cardiac: Revealed a regular rhythm and rate. No murmurs, gallops, or rubs. Abdomen: Benign. Extremities: Revealed no clubbing, cyanosis, or edema. Diagnostic Data: Her EKG initially showed atrial fibrillation, rate of 87. She is in sinus rhythm r ight now. Her creatinine was 2.02. Troponin is 0.06. BNP was 3708. Chest x-ray showed possible le ft lower lobe infiltrate. Impression And Plan: Paroxysmal atrial fibrillation, now in sinus rhythm. Continue p.o. amiodarone 400 b.i.d. If she becomes very bradycardic and the family wants to be very aggressive, then we will consider a pacemaker or an ablation as an outpatient in [place]. No need for further cardiac workup. Continue the aspirin. Consider low dose Xarelto 15 mg daily or Eliquis 5 mg b.i.d. She should be on amiodarone 400 b.i.d. for 7 days and then switch to 200 mg daily. Her other problems include tip l insufficiency that is being handled by Dr. Giles and Nephrology. Her elevated troponin and BNP ar e secondary to renal insufficiency and atrial fibrillation. She has dyslipidemia, neuropathy, severe Alzheimer. Her chest x-ray showed possible left lower lobe infiltrate and that may have been residu al from the last admission. Antibiotics may be recommended. CHARU/BANDAR Voice ID: [id number] Report ID: [id number]
[2021-05-11 12:29] VITALS: BP 139/65; TEMP 98.4
--- NOTE | 2021-05-11 14:09 | PN ---
Date of Progress Note: 05/11/2021 Ms. Byrne is 75. Has a history of Alzheimer, dyslipidemia, paroxysmal atrial fibrillation, and edgardo ropathy. Came in with acute renal failure and atrial fibrillation, was placed on p.o. amiodarone. T his morning, her creatinine is 1. She is on amiodarone 400 b.i.d. She is in sinus rhythm. Normal b lood pressure. Normal echocardiogram about 2 weeks ago. I will continue Lipitor, aspirin, Depakote, Neurontin, p.o. amiodarone at 400 b.i.d. for 7 days and then cut down to 200 mg daily. I would defi nitely consider anticoagulation such as Xarelto or Eliquis. I will leave that up to Dr. Giles. Fro m my standpoint, she can go home whenever it is okay with him. CHARU/BANDAR Voice ID: [id number] Report ID: [id number]
[2021-05-11] MEDS ORDERED: Levofloxacin500mg IV 500 MG/100 ML BAG IV SCH (18:00)
--- NOTE | 2021-05-12 03:59 | PN ---
Date of Progress Note: 05/11/2021 Chief Complaint: Acute kidney injury. The patient is a 75-year-old woman with multiple medical prob lems including history of dementia with behavioral disturbances with polymyalgia rheumatica, atrial f ibrillation. The patient was brought to the hospital because of hypotension. She was complaining of generalized weakness. She was admitted for pneumonia and Nephrology consultation was requested for acute kidney injury. Initially, she was found to have hypotension, systolic blood pressure was 80 an d then stabilized. Patient was found to have leukocytosis and elevated BNP. She received antibiotic s. Serum creatinine level at baseline previously was ranging from 0.6 to 0.8, creatinine on admissio n was 2.0 and gradually improved to 1.0. Review of Systems: Unobtainable. Patient has history of dementia. She denies pain. Physical Examination: Lungs: Few rhonchi. Heart: S1 and S2. Abdomen: Soft, benign. Extremities: Slight edema. Laboratory Data: Potassium 4.2, sodium 138, BUN 16, creatinine 2.02, magnesium 2.4. Impression And Plan: 1.Acute kidney injury secondary to prerenal azotemia complicated by nonoliguric acute tubular necros is and sepsis. Baseline creatinine level is 0.6 to 0.8. Patient was found to have acute kidney inju ry with creatinine level up to 2.0. It is improving. The patient was treated with IV hydration. Co ntinue p.o. hydration and monitor fluid balance. 2.Severe sepsis with pneumonia. Continue antibiotics. Follow up cultures. 3.Hypotension secondary to sepsis. BNP was elevated, likely secondary to respiratory issues. 4.Atrial flutter. The patient is on amiodarone. Cardiology consultation is requested. DIAZ/BANDAR Voice ID: [id number] Report ID: [id number]
== END 2021-05-11 12:48 | DRG 871 ==
LOC: ER 10:26 → ERHOLD 14:06 → 2ND 16:48
PROVIDERS: ADMIT Internal Medicine; ATTEND Internal Medicine
DX: A41.9 Sepsis, unspecified organism (principal); J18.9 Pneumonia, unspecified organism; N17.0 Acute kidney failure with tubular necrosis; I48.92 Unspecified atrial flutter; N39.0 Urinary tract infection, site not specified; I48.0 Paroxysmal atrial fibrillation; G62.9 Polyneuropathy, unspecified; E78.5 Hyperlipidemia, unspecified; G30.9 Alzheimer's disease, unspecified; G31.09 Other frontotemporal neurocognitive disorder; F02.80 Dementia in other diseases classified elsewhere, unspecified severity, without behavioral disturbance, psychotic disturbance, mood disturbance, and anxiety; F17.210 Nicotine dependence, cigarettes, uncomplicated; R65.20 Severe sepsis without septic shock; R77.8 Other specified abnormalities of plasma proteins; Y95 Nosocomial condition; Z88.5 Allergy status to narcotic agent; Z79.82 Long term (current) use of aspirin; Z79.899 Other long term (current) drug therapy; Z90.710 Acquired absence of both cervix and uterus; Z20.822 Contact with and (suspected) exposure to COVID-19
CPT/HCPCS: 36415; 71045; 74176; 80048; 80053; 80076; 81003; 81015; 83605; 83735; 83880; 84100; 84443; 84484; 85025; 85610; 87040; 87086; 87088; 93005; 94760; 96361; 96365; 96375; 97116; 97161; 99285; J0696; J1644; J2405; J3370; J7030; J7040; J7050; U0003

== ENCOUNTER 2021-05-20 14:14 | Emergency (ER) | payer OTHER ==
--- OUTSIDE RECORDS SUMMARY | 2021-05-20 14:17 | XMS REPORT | Continuity of Care Document ---
:1945 Author Organization [facility] t Address [address] [place] [address] Care Team Providers Name Role Phone Doctor Unassigned, Name Attending Clinician Unavailable Problems This patient has no known problems. Allergies, Adverse Reactions, Alerts This patient has no known allergies or adverse reactions. Medications This patient has no known medications. Procedures This patient has no known procedures. Encounters Start End Encounter Admission Attending Care Care Encounter Source Date/Time Date/Time Type Type Clinicians Facility Department ID 2020-02-22 2020-02-22 Orders Doctor BEAR [id number] 00:00:00 00:00:00 Only UnassignedMARYANNE [id number] [place] [facility] [id number] 2020-02-14 2020-02-14 Orders Doctor BEAR [id number] 00:00:00 00:00:00 Only UnassignedMARYANNE [id number] [place] [facility] [id number] Results This patient has no known results.
[2021-05-20 14:59] LABS: Absolute Lymphocytes (CBC) 1.9 K/uL (0.7-4.9); Basophils % 0.7 % (0-1.3); Hematocrit 35.9 % (36.0-45.0); Lymphocytes % 22.1 % (15.3-44.8); MPV 8.9 fL (7.6-11.3); RBC Red Blood Cell Count 4.15 M/uL (3.86-4.86)
[2021-05-20 15:29] LABS: Potassium 3.7 mmol/L (3.5-5.1)
--- NOTE | 2021-05-20 16:24 | RAD REPORT ---
EXAM DESCRIPTION: RAD - Chest Single View - 05/20/2021 3:49 pm CLINICAL HISTORY: reported low O2 COMPARISON: Portable May 09 TECHNIQUE: AP portable chest image was obtained 05/20/2021 3:49 pm . FINDINGS: Large left pleural effusion is present similar or slightly larger than May 09. Right lung field is clear. Upper left lung field clear. Heart size is prominent, partially obscured by the left -sided pleural fluid. Trachea is midline. No pneumothorax. No acute bony abnormality seen. No acute a ortic findings suspected. IMPRESSION: Large left pleural effusion similar or slightly increased from May 09. Vasculature and lung markings are normal range. A significant failure or volume overload process is n ot suspected.
--- NOTE | 2021-05-20 16:57 | ER ---
Nurse's Notes [facility] Name: Yuval Byrne Age: 75 yrs Sex: Female : 1945 Arrival Date: 05/20/2021 Time: 14:19 Bed 17 Private MD: Diagnosis: Pleural effusion, not elsewhere classified Presentation: 05/20 14:21 Chief complaint: EMS states: AFIB WITH SOB AFTER SMOKING. PER [facility], PT IS ALTERED bp AND WAS A HYPOXIC ON SCENE. PT DENIES CURRENT MEDICAL COMPLAINT. Coronavirus screen: At this time, the client does not indicate any symptoms associated with coronavirus-19. Ebola Screen: No symptoms or risks identified at this time. Initial Sepsis Screen: Does the patient meet any 2 criteria?. Initial Sepsis Screen: Does the patient meet any 2 criteria? No. Patient's initial sepsis screen is negative. Does the patient have a suspected source of infection? No. Patient's initial sepsis screen is negative. Risk Assessment: Do you want to hurt yourself or someone else? Patient reports no desire to harm self or others. Onset of symptoms is unknown. Transition of care: patient was received from another setting of care (rehabilitation facility). 14:21 Method Of Arrival: EMS: [facility] bp 14:21 Acuity: [facility] 3 bp Triage Assessment: 14:30 General: Appears in no apparent distress. comfortable, Behavior is calm, cooperative, bp appropriate for age. Pain: Denies pain. EENT: No deficits noted. Neuro: Level of Consciousness is awake, alert, obeys commands, Oriented to person, place. Cardiovascular: Rhythm is sinus rhythm. Respiratory: Reports NO S/S Onset: The symptoms/episode began/occurred at an unknown time. the patient reports symptoms have resolved. GI: No signs and/or symptoms were reported involving the gastrointestinal system. : No signs and/or symptoms were reported regarding the genitourinary system. Derm: No deficits noted. Musculoskeletal: No deficits noted. Historical: - Allergies: 14:30 HYDROCODONE; bp - Home Meds: 14:30 aspirin 81 mg Oral chew 1 tab once daily [Active]; TYLENOL 325 MG 2 tabs every 6 hours bp [Active]; Namenda XR 28 mg Oral CSpX 1 cap once daily [Active]; loratadine 10 mg Oral tab 1 tab once daily [Active]; gabapentin 400 mg Oral cap 1 cap 3 times per day [Active]; donepezil 10 mg Oral tab 2 tab once daily [Active]; atorvastatin 40 mg Oral tab 1 tab once daily [Active]; Depakote 125 mg Oral TbEC 3 tabs 2 times per day [Active]; - PMHx: 14:30 Alzheimers; COGNITIVE DEFICIT; Dementia w/behavioral disturbance; generalized weakness; bp Idiopathic Peripheral Autonomic Neuropathy; polymyalgia rheumatica; Systemic Involvement of Connective Tissue; - Immunization history:: Adult Immunizations up to date. - Social history:: Smoking status: Patient reports the use of cigarette tobacco products, unknown amount. - Family history:: not pertinent. - Hospitalizations: : No recent hospitalization is reported. Screenin:48 Abuse screen: Denies threats or abuse. Denies injuries from another. Nutritional bp screening: No deficits noted. Tuberculosis screening: No symptoms or risk factors identified. Fall Risk None identified. Assessment: 14:30 General: SEE TRIAGE NOTE. bp 15:30 Cardiovascular: Denies chest pain, Capillary refill Clubbing of nail beds Rhythm is bp Chest pain is denied. Respiratory: Airway is patent Respiratory effort is even, unlabored, Respiratory pattern is regular, symmetrical. 16:33 Reassessment: DIONY WILKINSON, DAUGHTER, . bp 17:15 Reassessment: PT TBDC. CLINICALS FAXED TO [place] FOR REVIEW. bp 17:54 Reassessment: REPORT TO ELLIOT FITCH AT [facility]. TRANSPORT PENDING. bp 19:30 Reassessment: Pt remains awake and alert, with even and unlabored respirations. No s/s jb4 of pain or distress are noted. d/c pending ride home. Vital Signs: 14:21 BP 149 / 65; Pulse 74; Resp 17; Temp 98; Pulse Ox 98% ; bp 15:30 BP 126 / 83; Pulse 73; Resp 16; Pulse Ox 93% on R/A; bp 16:32 BP 119 / 76; Pulse 74; Resp 16; Pulse Ox 95% ; bp 17:23 BP 140 / 83; Pulse 78; Resp 17; Pulse Ox 96% ; bp ED Course: 14:19 Patient arrived in ED. bp 14:23 Elvin Butler MD is Attending Physician. rn 14:45 Inserted saline lock: 22 gauge in right forearm, using aseptic technique. bp 15:05 Ricardo Melendrez, RN is Primary Nurse. bp 15:41 Triage completed. bp 15:45 Arm band placed on. bp 15:48 Patient has correct armband on for positive identification. Bed in low position. Call bp light in reach. Side rails up X2. Pulse ox on. NIBP on. Sitter at bedside. Cardiac monitoring not applicable on this patient. 15:50 XRAY Chest (1 view) In Process Unspecified. EDMS 16:00 No provider procedures requiring assistance completed. bp 17:23 IV discontinued, intact, bleeding controlled, No redness/swelling at site. Pressure bp dressing applied. Administered Medications: 17:00 Drug: Lasix (furosemide) 40 mg Route: IVP; Site: right forearm; bp 17:25 Follow up: Response: No adverse reaction bp Outcome: 16:34 Condition: stable bp 16:34 Instructed on discharge instructions, follow up and referral plans. the need for admit, the need for transfer. 16:57 Discharge ordered by . rn 19:39 Discharged to [facility]. jb4 19:39 Condition: stable 19:39 Discharge instructions given to patient, Instructed on discharge instructions, follow up and referral plans. Demonstrated understanding of instructions. 19:40 Patient left the ED. jb4 Signatures: Dispatcher [employer] EDMS Elvin Butler MD MD rn Bryson, James, RN RN jbRicardo Gallego, RN RN bp Corrections: (The following items were deleted from the chart) 15:41 14:21 BP 149 / 65; Pulse 74bpm; Resp 17bpm; Temp 90F; 44.45 kg; bp bp 16:39 16:00 IV discontinued, intact, bleeding controlled, No redness/swelling at site. bp Pressure dressing applied, bp
--- NOTE | 2021-05-20 16:57 | EDPHYS ---
Physician Documentation [facility] Name: Yuval Byrne Age: 75 yrs Sex: Female : 1945 Arrival Date: 05/20/2021 Time: 14:19 Bed 17 Private MD: ED Physician Elvin Butler HPI: 05/20 16:49 This 75 yrs old Female presents to ER via EMS with complaints of Shortness Of rn Breath. 16:49 The patient has shortness of breath during heavy activity. Onset: The symptoms/episode rn began/occurred just prior to arrival. Duration: The symptoms are intermittent. The patient's shortness of breath is aggravated by exertion, is alleviated by rest. Associated signs and symptoms: Pertinent negatives: chest pain, non-productive cough, productive cough, fever, hemoptysis. Severity of symptoms: At their worst the symptoms were mild in the emergency department the symptoms have improved. It is unknown whether or not the patient has had similar symptoms in the past. The patient has not recently seen a physician. Per EMS, patient noted to have high heart rate and low oxygen after coming in from smoking and out of the rain. Patient reports that was smoking, was raining, so had to walk all the way back to her room, felt winded, but not anymore than usual. Currently denies feeling sob or having chest pain. States feels fine. No fever. Does not feel ill. . Historical: - Allergies: 14:30 HYDROCODONE; bp - Home Meds: 14:30 aspirin 81 mg Oral chew 1 tab once daily [Active]; TYLENOL 325 MG 2 tabs every 6 hours bp [Active]; Namenda XR 28 mg Oral CSpX 1 cap once daily [Active]; loratadine 10 mg Oral tab 1 tab once daily [Active]; gabapentin 400 mg Oral cap 1 cap 3 times per day [Active]; donepezil 10 mg Oral tab 2 tab once daily [Active]; atorvastatin 40 mg Oral tab 1 tab once daily [Active]; Depakote 125 mg Oral TbEC 3 tabs 2 times per day [Active]; - PMHx: 14:30 Alzheimers; COGNITIVE DEFICIT; Dementia w/behavioral disturbance; generalized weakness; bp Idiopathic Peripheral Autonomic Neuropathy; polymyalgia rheumatica; Systemic Involvement of Connective Tissue; - Immunization history:: Adult Immunizations up to date. - Social history:: Smoking status: Patient reports the use of cigarette tobacco products, unknown amount. - Family history:: not pertinent. - Hospitalizations: : No recent hospitalization is reported. ROS: 16:49 Constitutional: Negative for fever, chills, and weight loss, Eyes: Negative for injury, rn pain, redness, and discharge, Neck: Negative for injury, pain, and swelling, Cardiovascular: Negative for chest pain, palpitations, and edema, Respiratory: Negative for wheezing, and pleuritic chest pain, Abdomen/GI: Negative for abdominal pain, nausea, vomiting, diarrhea, and constipation, Back: Negative for injury and pain, MS/Extremity: Negative for injury and deformity, Skin: Negative for injury, rash, and discoloration, Neuro: Negative for headache, weakness, numbness, tingling, and seizure. Exam: 16:49 Constitutional: This is a well developed, well nourished patient who is awake, alert, rn and in no acute distress. Head/Face: Normocephalic, atraumatic. Eyes: Pupils equal round and reactive to light, extra-ocular motions intact. Lids and lashes normal. Conjunctiva and sclera are non-icteric and not injected. Cornea within normal limits. Periorbital areas with no swelling, redness, or edema. ENT: MMM, no stridor Cardiovascular: Regular rate and rhythm. No pulse deficits. Respiratory: No increased work of breathing, no retractions or nasal flaring. Faint wheezing that clears with cough, + diminished breath sounds left lung base. NO retractions, speaking full sentences. Abdomen/GI: sof,t non-tender Skin: Warm, dry MS/ Extremity: Pulses equal, no cyanosis. Neurovascular intact. Full, normal range of motion. Equal circumference. Neuro: Awake and alert, GCS 15. Motor strength 5/5 in all extremities. Sensory grossly intact. Cerebellar exam normal. Vital Signs: 14:21 BP 149 / 65; Pulse 74; Resp 17; Temp 98; Pulse Ox 98% ; bp 15:30 BP 126 / 83; Pulse 73; Resp 16; Pulse Ox 93% on R/A; bp 16:32 BP 119 / 76; Pulse 74; Resp 16; Pulse Ox 95% ; bp 17:23 BP 140 / 83; Pulse 78; Resp 17; Pulse Ox 96% ; bp MDM: 14:23 Patient medically screened. rn 16:49 Differential diagnosis: Anxiety Reaction Chronic Obstructive Pulmonary Disease rn pneumonia, Pneumothorax pulmonary edema, pleural effusion. Data reviewed: vital signs, nurses notes, lab test result(s), radiologic studies, plain films, and as a result, I will discharge patient. Counseling: I had a detailed discussion with the patient and/or guardian regarding: the historical points, exam findings, and any diagnostic results supporting the discharge/admit diagnosis, lab results, radiology results, the need for outpatient follow up, to return to the emergency department if symptoms worsen or persist or if there are any questions or concerns that arise at home. Response to treatment: the patient's symptoms have mildly improved after treatment, and as a result, I will discharge patient. Special discussion: I discussed with the patient/guardian in detail that at this point there is no indication for admission to the hospital. It is understood, however, that if the symptoms persist or worsen the patient needs to return immediately for re-evaluation. ED course: No oxygen requirement here, left pleural effusion not grossly changed from prior, patient has not complaints, not seeing tachycardia or low oxygen that half-way reported, will dc home after some lasix with return precautions as her chronic pleural effusion and smoking hx may have contributed to transient dyspnea and tachycardia as could be expected. . 17:45 ED course: Pt up and walking without dyspnea.. rn 05/20 14:24 Order name: CBC with Diff; Complete Time: 15:56 rn 05/20 14:24 Order name: Basic Metabolic Panel; Complete Time: 15:56 05/20 14:24 Order name: Procalcitonin; Complete Time: 16:43 rn 05/20 14:24 Order name: XRAY Chest (1 view); Complete Time: 16:43 rn 05/20 14:24 Order name: BNP; Complete Time: 15:56 rn 05/20 14:24 Order name: IV Start; Complete Time: 15:40 rn 05/20 14:24 Order name: Cardiac monitoring; Complete Time: 15:40 rn 05/20 14:24 Order name: O2 Per Protocol; Complete Time: 15:40 rn 05/20 14:24 Order name: O2 Sat Monitoring; Complete Time: 15:40 rn Administered Medications: 17:00 Drug: Lasix (furosemide) 40 mg Route: IVP; Site: right forearm; bp 17:25 Follow up: Response: No adverse reaction bp Disposition: 05/20/21 16:57 Discharged to Home. Impression: Pleural effusion, not elsewhere classified. - Condition is Stable. - Discharge Instructions: Pleural Effusion. - Medication Reconciliation Form, Thank You Letter, Antibiotic Education, Prescription Opioid Use form. - Follow up: Private Physician; When: As needed; Reason: Recheck today's complaints, Re-evaluation by your physician. - Problem is new. - Symptoms have improved. Signatures: Dispatcher [employer] EDMS Elvin Butler MD MD rn Bryson, James RN RN [id number] Ricardo Melendrez RN RN bp Corrections: (The following items were deleted from the chart) 19:40 16:57 05/20/2021 16:57 Discharged to Home. Impression: Pleural effusion, not elsewhere jb4 classified. Condition is Stable. Forms are Medication Reconciliation Form, Thank You Letter, Antibiotic Education, Prescription Opioid Use. Follow up: Private Physician; When: As needed; Reason: Recheck today's complaints, Re-evaluation by your physician. Problem is new. Symptoms have improved. rn
[2021-05-20] MEDS ORDERED: FUROSEMIDE 40 MG/4 ML VIAL ONE (17:26)
[2021-05-20 19:45] VITALS: TEMP 98
[2021-05-20 19:50] VITALS: BP 140/83; O2SAT 96
== END 2021-05-20 19:40 | disposition home or self-care (01) ==
LOC: ER 14:14
DX: J90 Pleural effusion, not elsewhere classified (principal); G30.9 Alzheimer's disease, unspecified; F02.81 Dementia in other diseases classified elsewhere, unspecified severity, with behavioral disturbance; Z72.0 Tobacco use; Z79.82 Long term (current) use of aspirin; Z88.5 Allergy status to narcotic agent
CPT/HCPCS: 85025; 80048; 36415; 84145; 83880; 71045; J1940; 96374; 99285